=== PATIENT | female | born 1990 | race Caucasian/White ===

== ENCOUNTER 2019-09-08 13:45 | Outpatient (RCR) | payer OTHER, MEDICAID, SELFPAY ==
--- NOTE | 2019-03-17 13:13 | PT.OIE ---
Current Diagnoses Lesion of ulnar nerve, unspecified upper limb (03/17/19) Medial epicondylitis, left elbow (03/17/19) Past Surgical History History of third molar tooth extraction History of tonsillectomy Visit Care Team Role Provider Type Nancy Goldstein MD Attending Provider Non-Staff Primary Care Provider Specialty: Family Practice Address: [address] [place] [address], [phone] Fax: Email: Physical Therapy Initial Evaluation PT-OP-A Visit Information Start: 03/16/19 18:42 Freq: Status: Active Protocol: Document 03/17/19 09:46 [facility] (Rec: 03/17/19 11:16 [facility] [id number]) Out-Patient Physical Therapy Visit Information Visit Information Visit Type Initial Evaluation Visit Start Time 09:52 Visit Stop Time 10:35 Total Visit Minutes 43 Visit Number [address] SUPERVISOR Visits 0 PT-OP-B Current Condition Start: 03/16/19 18:42 Freq: Status: Active Protocol: Document 03/17/19 09:46 [facility] (Rec: 03/17/19 11:16 [facility] [id number]) Current Condition History of Current Condition Onset Date 2014 Current Complaints L post arm pain History of Current Condition Pt reports post brachium and and med forearm/post forearm & fingers, but does not rememeber which fingers but thinks 2-4. Pt reports it hadn 't made its way into her hand until 2019. Pt does not remember when the pain exactly started but it was sore every once in a while and eventually got worse. Pt neck pain does not typicaly relate to arm pain. 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 Pt has history of depression, anxiety and bipolar condition along with neck pain. Pt reports hisotry of reoccuring pain in all of her joints throguhout all of her body since 14. She has had to do PT on B knees, R shoulder coritzone shot, B hips give her trouble. Prior Treatments and Tests none Treatment Goals Patient/Caregiver Goals Dec pain, prevent progression of pain into hand, improve ability to lift PT-OP-C Subjective Start: 03/16/19 18:42 Freq: Status: Active Protocol: Document 03/17/19 09:46 [facility] (Rec: 03/17/19 11:16 [facility] [id number]) OP-PT Pain Assessment Location L arm Pain Location Details ant forearm & post med distal brachium & ant finger tips 2-4 Intensity 7 Scale Used Numeric (1 - 10) Description Throbbing Description- Other at least 4x/week Frequency Intermittent Pain Duration hours Radiating Location sometimes just elbow but often entire area Variations/Patterns numbness & tingling mostly in hand Pain Aggravating Factors ADL's,Activity,Lifting Other Pain Aggravating Factors sometimes unsure, holding phone to look @ in front ( having arm up) Pain Alleviating Factors Cold,Heat,Medication Other Pain Alleviating Factors compression sleeve PT-OP-F Manual Assessment Start: 03/16/19 18:42 Freq: Status: Active Protocol: Document 03/17/19 09:46 [facility] (Rec: 03/17/19 11:16 [facility] [id number]) Manual Assessments Soft Tissue Assessment Soft Tissue Mobility Assessment pain w/palpation of triceps, biceps and wrist fled and extensors PT-OP-J Posture/Palpation/Skin Start: 03/16/19 18:42 Freq: Status: Active Protocol: Document 03/17/19 09:46 [facility] (Rec: 03/17/19 11:16 [facility] [id number]) Posture Evaluation [facility] Postural Classification System [place] Postural Classifications Posterior/Anterior Vertebral Compression Test 0 Elbow Flexion Test 0 PT-OP-K Range of Motion Start: 03/16/19 18:42 Freq: Status: Active Protocol: Document 03/17/19 09:46 [facility] (Rec: 03/17/19 11:16 [facility] [id number]) Cervical Spine Range of Motion Cervical Spine Active Degrees Flexion 78 Extension 52 Rotation Left 30 Rotation Right 21 Lateral Flexion Left 68 Lateral Flexion Right 62 Comments neck pain w/R rot, R SB, ext Elbow/Forearm Range of Motion Elbow/Forearm Right Active Elbow Flexion (degrees) 140 Elbow Hyperextension 5 Left Active ROM Testing Position Sitting Elbow Flexion (degrees) 140 Elbow Extension (degrees) 18 Pronation (degrees) 90 Supination (degrees) 81 PT-OP-L Special Tests Start: 03/16/19 18:42 Freq: Status: Active Protocol: Document 03/17/19 09:46 [facility] (Rec: 03/17/19 11:16 [facility] [id number]) Special Tests Cervical Spine Special Tests Spurling's Test Test Results neg Neural Special Tests- Upper Body Tinel Sign Test Results L negative Radial Nerve Tension Test Results L positive Upper Limb Tension Test Test Results L 60 deg, R 110~ Median Nerve Tension Test Results neg L Ulnar Nerve Tension Test Results neg Vascular Special Tests Costoclavicular Maneuver Test Results neg for dec pulse positvie for inc pain Patricio Test Test Results neg for dec pulse positvie for inc pain PT-OP-M Strength Start: 03/16/19 18:42 Freq: Status: Active Protocol: Document 03/17/19 09:46 [facility] (Rec: 03/17/19 11:16 [facility] [id number]) Elbow/Forearm Strength Elbow and Forearm Manual Muscle Testing Right Flexion (C6) 5 Normal Extension (C7) 5 Normal Pronation 5 Normal Supination 5 Normal Left Flexion (C6) 4- Good- Extension (C7) 4- Good- Pronation 4- Good- Supination 4- Good- Reason Not Measured Pain Wrist Strength Wrist Manual Muscle Testing Right Reason Not Measured WFL Left Reason Not Measured WFL Comments 5/5 Hand Boiler Control Room Operator/Pinch Strength Hand Dominance Hand Dominance Right Hand Strength Right Comments 58lb, 45 lb, 40lbs Left Comments 40lb, 30 lb, 38 lb PT-OP-Q Treatments Start: 03/16/19 18:42 Freq: Status: Active Protocol: Document 03/17/19 09:46 [facility] (Rec: 03/17/19 11:16 [facility] [id number]) Therapeutic Exercises Sitting Exercises stretch Sitting Exercise Name elbow flex & ext stretches Side left Reps/Minutes 30 sec for elbow flexors only d/t pain with ext stretch PT-OP-T Assessment and Plan Start: 03/16/19 18:42 Freq: Status: Active Protocol: Document 03/17/19 09:46 [facility] (Rec: 03/17/19 11:16 [facility] [id number]) Physical Therapy Assessment Rehab Potential Rehabilitation Potential Good Evaluation Complexity Number of Personal Factors/Comorbidities 3 or More Number of Body Systems Impaired 4 or More Clinical Presentation at Evaluation Evolving Impairments Impairments Activity Tolerance,Functional Activities,Functional Mobility ,Pain,Posture,ROM,Soft Tissue Mobility,Strength Goals Quickdash Impairment 34.1 Residential Goal (LTG) Pt will have improvement of quickdash to less than 10 to show greater ease with daily activities. LTG Duration 05/16/19 strength Short Term Goal (STG) Pt will be indep w/HEP. STG Duration 04/17/19 Residential Goal (LTG) Pt will have 5/5 elbow strength & shoulder strength B and 4/5 EFT along with equal tacker off strength B to allow pt to do typical daily activities without pain. LTG Duration 05/16/19 lifting Short Term Goal (STG) Pt will have full AROM ext & supination of L elbow. STG Duration 04/17/19 Residential Goal (LTG) Pt will be able to lift as needed without inc pain. LTG Duration 05/16/19 Assessment Summary Assessment Pt presents with signs and symptoms of L radial nerve compression possibly at triceps. No symptoms increased with cervical ROM, but some inc with doing shoulder motions required of thoracic outlet testing. She had negative testing to ulnar nerve and negative tinnel's sign at elbow. She Physical Therapy Plan Frequency and Duration Frequency of Treatment 1-2x/week Duration of Treatment 2 MONTHES Plan of Care Start Date 03/17/19 Plan of Care End Date 05/16/19 Therapeutic Interventions Therapeutic Interventions Aquatic Therapy,Home Exercise Program,Joint Mobilizations, Manual Therapy,Neuromuscular Re-education,Patient/Caregiver Education,Self-Care/Home Management,Soft Tissue Mobilization,Taping, Therapeutic Activities, Therapeutic Exercises Modalities Cold Pack/Ice Massage,Electric Stimulation,Hot Packs, Infrared Therapy,Iontophoresis ,Traction- Mechanical, Ultrasound Next Visit Focus/Plan Next Note Type Treatment Note Next Visit Plan radial n glides, STM to triceps, flexors & extensors, tacker off strengthening exercises
--- NOTE | 2019-03-17 13:13 | PT.OPPOC ---
Physical, Occupational & Speech Therapy At [facility] Current Diagnoses Lesion of ulnar nerve, unspecified upper limb (03/17/19) Medial epicondylitis, left elbow (03/17/19) Visit Care Team Role Provider Type Nancy Goldstein MD Attending Provider Non-Staff Primary Care Provider Specialty: Family Practice Address: [address] [place] [address], [phone] Fax: Email: Plan Of Care PT-OP-T Assessment and Plan Start: 03/16/19 18:42 Freq: Status: Active Protocol: Document 03/17/19 09:46 [facility] (Rec: 03/17/19 11:16 [facility] [id number]) Physical Therapy Assessment Rehab Potential Rehabilitation Potential Good Evaluation Complexity Number of Personal Factors/Comorbidities 3 or More Number of Body Systems Impaired 4 or More Clinical Presentation at Evaluation Evolving Impairments Impairments Activity Tolerance,Functional Activities,Functional Mobility ,Pain,Posture,ROM,Soft Tissue Mobility,Strength Goals Quickdash Impairment 34.1 Butter Maker Goal (LTG) Pt will have improvement of quickdash to less than 10 to show greater ease with daily activities. LTG Duration 05/16/19 strength Short Term Goal (STG) Pt will be indep w/HEP. STG Duration 04/17/19 [facility] Goal (LTG) Pt will have 5/5 elbow strength & shoulder strength B and 4/5 EFT along with equal scrap kettle tender strength B to allow pt to do typical daily activities without pain. LTG Duration 05/16/19 lifting Short Term Goal (STG) Pt will have full AROM ext & supination of L elbow. STG Duration 04/17/19 Butter Maker Goal (LTG) Pt will be able to lift as needed without inc pain. LTG Duration 05/16/19 Assessment Summary Assessment Pt presents with signs and symptoms of L radial nerve compression possibly at triceps. No symptoms increased with cervical ROM, but some inc with doing shoulder motions required of thoracic outlet testing. She had negative testing to ulnar nerve and negative tinnel's sign at elbow. She Physical Therapy Plan Frequency and Duration Frequency of Treatment 1-2x/week Duration of Treatment 2 MONTHES Plan of Care Start Date 03/17/19 Plan of Care End Date 05/16/19 Therapeutic Interventions Therapeutic Interventions Aquatic Therapy,Home Exercise Program,Joint Mobilizations, Manual Therapy,Neuromuscular Re-education,Patient/Caregiver Education,Self-Care/Home Management,Soft Tissue Mobilization,Taping, Therapeutic Activities, Therapeutic Exercises Modalities Cold Pack/Ice Massage,Electric Stimulation,Hot Packs, Infrared Therapy,Iontophoresis ,Traction- Mechanical, Ultrasound Next Visit Focus/Plan Next Note Type Treatment Note Next Visit Plan radial n glides, STM to triceps, flexors & extensors, scrap kettle tender strengthening exercises Plan of Care Dates Plan of Care Start Date 03/17/19 Plan of Care End Date 05/16/19 Electronically Signed by: Vickie Siegel, PT 03/17/19 8020 Please Sign and Return: I have reviewed this Plan of Care and certify that the skilled therapy services above are required to meet the patient?s needs. Physician Signature Date Printed Name and Credentials Clinical Instructor Signature Printed Name and Credentials
--- NOTE | 2019-03-29 12:00 | PT.OTN ---
Current Diagnoses Lesion of ulnar nerve, unspecified upper limb (03/29/19) Medial epicondylitis, left elbow (03/29/19) Physical Therapy Treatment Note PT-OP-A Visit Information Start: 03/16/19 18:42 Freq: Status: Active Protocol: Document 03/29/19 08:13 [facility] (Rec: 03/29/19 12:00 [facility] [id number]) Out-Patient Physical Therapy Visit Information Visit Information Visit Type Treatment Note Visit Start Time 08:15 Visit Stop Time 08:55 Total Visit Minutes 40 Visit Number 2 Number of AGRICULTURAL EXTENSION EDUCATOR Visits 0 PT-OP-B Current Condition Start: 03/16/19 18:42 Freq: Status: Active Protocol: Document 03/17/19 09:46 [facility] (Rec: 03/17/19 11:16 [facility] [id number]) Current Condition History of Current Condition Onset Date 2014 Current Complaints L post arm pain History of Current Condition Pt reports post brachium and and med forearm/post forearm & fingers, but does not rememeber which fingers but thinks 2-4. Pt reports it hadn 't made its way into her hand until 2019. Pt does not remember when the pain exactly started but it was sore every once in a while and eventually got worse. Pt neck pain does not typicaly relate to arm pain. 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 Pt has history of depression, anxiety and bipolar condition along with neck pain. Pt reports hisotry of reoccuring pain in all of her joints throguhout all of her body since 14. She has had to do PT on B knees, R shoulder coritzone shot, B hips give her trouble. Prior Treatments and Tests none Treatment Goals Patient/Caregiver Goals Dec pain, prevent progression of pain into hand, improve ability to lift PT-OP-C Subjective Start: 03/16/19 18:42 Freq: Status: Active Protocol: Document 03/29/19 08:13 [facility] (Rec: 03/29/19 12:00 [facility] [id number]) OP-PT Subjective Patient Comments Patient Comments Pt reports she took advil this AM d/t it hurting pretty bad. Pt reports it has gotten better since eval. Compliance iwth stretch Patient Reported Progress Improving PT-OP-F Manual Assessment Start: 03/16/19 18:42 Freq: Status: Active Protocol: Document 03/17/19 09:46 [facility] (Rec: 03/17/19 11:16 [facility] [id number]) Manual Assessments Soft Tissue Assessment Soft Tissue Mobility Assessment pain w/palpation of triceps, biceps and wrist fled and extensors PT-OP-J Posture/Palpation/Skin Start: 03/16/19 18:42 Freq: Status: Active Protocol: Document 03/17/19 09:46 [facility] (Rec: 03/17/19 11:16 [facility] [id number]) Posture Evaluation [facility] Postural Classification System [facility] Postural Classifications Posterior/Anterior Vertebral Compression Test 0 Elbow Flexion Test 0 PT-OP-K Range of Motion Start: 03/16/19 18:42 Freq: Status: Active Protocol: Document 03/17/19 09:46 [facility] (Rec: 03/17/19 11:16 [facility] [id number]) Cervical Spine Range of Motion Cervical Spine Active Degrees Flexion 78 Extension 52 Rotation Left 30 Rotation Right 21 Lateral Flexion Left 68 Lateral Flexion Right 62 Comments neck pain w/R rot, R SB, ext Elbow/Forearm Range of Motion Elbow/Forearm Right Active Elbow Flexion (degrees) 140 Elbow Hyperextension 5 Left Active ROM Testing Position Sitting Elbow Flexion (degrees) 140 Elbow Extension (degrees) 18 Pronation (degrees) 90 Supination (degrees) 81 PT-OP-L Special Tests Start: 03/16/19 18:42 Freq: Status: Active Protocol: Document 03/17/19 09:46 [facility] (Rec: 03/17/19 11:16 [facility] [id number]) Special Tests Cervical Spine Special Tests Spurling's Test Test Results neg Neural Special Tests- Upper Body Tinel Sign Test Results L negative Radial Nerve Tension Test Results L positive Upper Limb Tension Test Test Results L 60 deg, R 110~ Median Nerve Tension Test Results neg L Ulnar Nerve Tension Test Results neg Vascular Special Tests Costoclavicular Maneuver Test Results neg for dec pulse positvie for inc pain Patricio Test Test Results neg for dec pulse positvie for inc pain PT-OP-M Strength Start: 03/16/19 18:42 Freq: Status: Active Protocol: Document 03/17/19 09:46 [facility] (Rec: 03/17/19 11:16 [facility] [id number]) Elbow/Forearm Strength Elbow and Forearm Manual Muscle Testing Right Flexion (C6) 5 Normal Extension (C7) 5 Normal Pronation 5 Normal Supination 5 Normal Left Flexion (C6) 4- Good- Extension (C7) 4- Good- Pronation 4- Good- Supination 4- Good- Reason Not Measured Pain Wrist Strength Wrist Manual Muscle Testing Right Reason Not Measured WFL Left Reason Not Measured WFL Comments 5/5 Hand Decontamination Technician/Pinch Strength Hand Dominance Hand Dominance Right Hand Strength Right Comments 58lb, 45 lb, 40lbs Left Comments 40lb, 30 lb, 38 lb PT-OP-Q Treatments Start: 03/16/19 18:42 Freq: Status: Active Protocol: Document 03/29/19 08:13 [facility] (Rec: 03/29/19 12:00 [facility] [id number]) Therapeutic Exercises Sitting Exercises putty Sitting Exercise Name grasp & pinching Side left supination Side left Equipment Used Lvl 1 tband Reps/Minutes 15 stretch Sitting Exercise Name tricep stretch, wrist flexor & ext stretch Side left Reps/Minutes 30 sec ea Standing Exercises AAROm Standing Exercise Name elbow flex/ext in pronation & supinated & neutral position Side left Equipment Used tbar Reps/Minutes 10 stretch Standing Exercise Name bicep/pec doorway stretch Side left Reps/Minutes 30 sec Manual Therapy Treatment Soft Tissue Mobilization forearm Body Location circumfrential MFR & rolling into flexors/extensors biceps Body Location L Mobilization Type Rolling,Strumming,Sustained Pressure Intensity/Depth Moderate Joint Mobilizations humeroulnar Joint L Direction distraction FM radioulnar Joint L Direction AP FM PT-OP-T Assessment and Plan Start: 03/16/19 18:42 Freq: Status: Active Protocol: Document 03/29/19 08:13 [facility] (Rec: 03/29/19 12:00 [facility] [id number]) Physical Therapy Assessment Goals Quickdash Impairment 34.1 Shirt Folding Machine Operator Goal (LTG) Pt will have improvement of quickdash to less than 10 to show greater ease with daily activities. LTG Duration 05/16/19 strength Short Term Goal (STG) Pt will be indep w/HEP. STG Duration 04/17/19 Shirt Folding Machine Operator Goal (LTG) Pt will have 5/5 elbow strength & shoulder strength B and 4/5 EFT along with equal wearing apparel folder strength B to allow pt to do typical daily activities without pain. LTG Duration 05/16/19 lifting Short Term Goal (STG) Pt will have full AROM ext & supination of L elbow. STG Duration 04/17/19 Shirt Folding Machine Operator Goal (LTG) Pt will be able to lift as needed without inc pain. LTG Duration 05/16/19 Assessment Summary Assessment Pt had improved ROM into flex & ext with dec pain after treatment. She has signficiant biceps & tricpes restrictions that likely create a lot of her restrictions of ROM. Radioulnar joint also appears to ahve significant restrction . Physical Therapy Plan Frequency and Duration Frequency of Treatment 1-2x/week Duration of Treatment 2 MONTHES Plan of Care Start Date 03/17/19 Plan of Care End Date 05/16/19 Next Visit Focus/Plan Next Note Type Treatment Note Next Visit Plan review HEP, radial n glides, STM to biceps, triceps, bracioradialis, joint mobs
--- NOTE | 2019-03-31 12:09 | PT.OTN ---
Current Diagnoses Lesion of ulnar nerve, unspecified upper limb (03/31/19) Medial epicondylitis, left elbow (03/31/19) Physical Therapy Treatment Note PT-OP-A Visit Information Start: 03/16/19 18:42 Freq: Status: Active Protocol: Document 03/31/19 11:25 [facility] (Rec: 03/31/19 12:09 [facility] [id number]) Out-Patient Physical Therapy Visit Information Visit Information Visit Type Treatment Note Visit Start Time 11:20 Visit Stop Time 12:15 Total Visit Minutes 55 Visit Number 3 Number of ENGINE ASSEMBLY SUPERVISOR Visits 0 PT-OP-B Current Condition Start: 03/16/19 18:42 Freq: Status: Active Protocol: Document 03/17/19 09:46 [facility] (Rec: 03/17/19 11:16 [facility] [id number]) Current Condition History of Current Condition Onset Date 2014 Current Complaints L post arm pain History of Current Condition Pt reports post brachium and and med forearm/post forearm & fingers, but does not rememeber which fingers but thinks 2-4. Pt reports it hadn 't made its way into her hand until 2019. Pt does not remember when the pain exactly started but it was sore every once in a while and eventually got worse. Pt neck pain does not typicaly relate to arm pain. 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 Pt has history of depression, anxiety and bipolar condition along with neck pain. Pt reports hisotry of reoccuring pain in all of her joints throguhout all of her body since 14. She has had to do PT on B knees, R shoulder coritzone shot, B hips give her trouble. Prior Treatments and Tests none Treatment Goals Patient/Caregiver Goals Dec pain, prevent progression of pain into hand, improve ability to lift PT-OP-C Subjective Start: 03/16/19 18:42 Freq: Status: Active Protocol: Document 03/31/19 11:25 [facility] (Rec: 03/31/19 12:09 [facility] [id number]) OP-PT Subjective Patient Comments Patient Comments Pt reports she was compliant with HEP. Notes she was sore for a couple hours after last session but did ok PT-OP-F Manual Assessment Start: 03/16/19 18:42 Freq: Status: Active Protocol: Document 03/17/19 09:46 [facility] (Rec: 03/17/19 11:16 [facility] [id number]) Manual Assessments Soft Tissue Assessment Soft Tissue Mobility Assessment pain w/palpation of triceps, biceps and wrist fled and extensors PT-OP-J Posture/Palpation/Skin Start: 03/16/19 18:42 Freq: Status: Active Protocol: Document 03/17/19 09:46 [facility] (Rec: 03/17/19 11:16 [facility] [id number]) Posture Evaluation [facility] Postural Classification System [facility] Postural Classifications Posterior/Anterior Vertebral Compression Test 0 Elbow Flexion Test 0 PT-OP-K Range of Motion Start: 03/16/19 18:42 Freq: Status: Active Protocol: Document 03/17/19 09:46 [facility] (Rec: 03/17/19 11:16 [facility] [id number]) Cervical Spine Range of Motion Cervical Spine Active Degrees Flexion 78 Extension 52 Rotation Left 30 Rotation Right 21 Lateral Flexion Left 68 Lateral Flexion Right 62 Comments neck pain w/R rot, R SB, ext Elbow/Forearm Range of Motion Elbow/Forearm Right Active Elbow Flexion (degrees) 140 Elbow Hyperextension 5 Left Active ROM Testing Position Sitting Elbow Flexion (degrees) 140 Elbow Extension (degrees) 18 Pronation (degrees) 90 Supination (degrees) 81 PT-OP-L Special Tests Start: 03/16/19 18:42 Freq: Status: Active Protocol: Document 03/17/19 09:46 [facility] (Rec: 03/17/19 11:16 [facility] [id number]) Special Tests Cervical Spine Special Tests Spurling's Test Test Results neg Neural Special Tests- Upper Body Tinel Sign Test Results L negative Radial Nerve Tension Test Results L positive Upper Limb Tension Test Test Results L 60 deg, R 110~ Median Nerve Tension Test Results neg L Ulnar Nerve Tension Test Results neg Vascular Special Tests Costoclavicular Maneuver Test Results neg for dec pulse positvie for inc pain Patricio Test Test Results neg for dec pulse positvie for inc pain PT-OP-M Strength Start: 03/16/19 18:42 Freq: Status: Active Protocol: Document 03/17/19 09:46 [facility] (Rec: 03/17/19 11:16 [facility] [id number]) Elbow/Forearm Strength Elbow and Forearm Manual Muscle Testing Right Flexion (C6) 5 Normal Extension (C7) 5 Normal Pronation 5 Normal Supination 5 Normal Left Flexion (C6) 4- Good- Extension (C7) 4- Good- Pronation 4- Good- Supination 4- Good- Reason Not Measured Pain Wrist Strength Wrist Manual Muscle Testing Right Reason Not Measured WFL Left Reason Not Measured WFL Comments 5/5 Hand Sourcing Engineer/Pinch Strength Hand Dominance Hand Dominance Right Hand Strength Right Comments 58lb, 45 lb, 40lbs Left Comments 40lb, 30 lb, 38 lb PT-OP-Q Treatments Start: 03/16/19 18:42 Freq: Status: Active Protocol: Document 03/31/19 11:25 [facility] (Rec: 03/31/19 12:09 [facility] [id number]) Therapeutic Exercises Sitting Exercises elbow flex Sitting Exercise Name in sup & pronated position Side left Reps/Minutes 10 ea supination Side left Equipment Used Lvl 1 tband Reps/Minutes 15 stretch Sitting Exercise Name tricep stretch, wrist flexor & ext stretch Side left Reps/Minutes 30 sec ea Standing Exercises AAROm Standing Exercise Name elbow flex/ext in pronation & supinated position Side left Equipment Used tbar Reps/Minutes 10 stretch Standing Exercise Name bicep/pec doorway stretch Side left Reps/Minutes 30 sec Manual Therapy Treatment Soft Tissue Mobilization forearm Body Location circumfrential MFR & rolling into flexors/extensors biceps Body Location L Mobilization Type Rolling,Strumming,Sustained Pressure Intensity/Depth Moderate Joint Mobilizations humeroulnar Joint L Direction distraction FM radioulnar Joint L Direction AP & distraction FM PT-OP-T Assessment and Plan Start: 03/16/19 18:42 Freq: Status: Active Protocol: Document 03/31/19 11:25 [facility] (Rec: 03/31/19 12:09 [facility] [id number]) Physical Therapy Assessment Goals Quickdash Impairment 34.1 Shelter Goal (LTG) Pt will have improvement of quickdash to less than 10 to show greater ease with daily activities. LTG Duration 05/16/19 strength Short Term Goal (STG) Pt will be indep w/HEP. STG Duration 04/17/19 Shelter Goal (LTG) Pt will have 5/5 elbow strength & shoulder strength B and 4/5 EFT along with equal midwife practitioner strength B to allow pt to do typical daily activities without pain. LTG Duration 05/16/19 lifting Short Term Goal (STG) Pt will have full AROM ext & supination of L elbow. STG Duration 04/17/19 Cardiac Cath Technologist Goal (LTG) Pt will be able to lift as needed without inc pain. LTG Duration 05/16/19 Assessment Summary Assessment Pt had improved abilityt o passively ext after treatment but still has pain at end range. Sghe is doing well with exercise performance. Physical Therapy Plan Frequency and Duration Frequency of Treatment 1-2x/week Duration of Treatment 2 MONTHES Plan of Care Start Date 03/17/19 Plan of Care End Date 05/16/19 Next Visit Focus/Plan Next Note Type Treatment Note Next Visit Plan radial n glides, STM to biceps , triceps, bracioradialis, joint mobs
--- NOTE | 2019-04-07 18:48 | PT.OTN ---
Current Diagnoses Lesion of ulnar nerve, unspecified upper limb (04/07/19) Medial epicondylitis, left elbow (04/07/19) Physical Therapy Treatment Note PT-OP-A Visit Information Start: 03/16/19 18:42 Freq: Status: Active Protocol: Document 04/07/19 18:45 [facility] (Rec: 04/07/19 18:48 [facility] [id number]) Out-Patient Physical Therapy Visit Information Visit Information Visit Type Treatment Note Visit Start Time 11:22 Visit Stop Time 12:02 Total Visit Minutes 40 Visit Number 4 Number of PHARMACY SERVICES REPRESENTATIVE Visits 0 PT-OP-B Current Condition Start: 03/16/19 18:42 Freq: Status: Active Protocol: Document 03/17/19 09:46 [facility] (Rec: 03/17/19 11:16 [facility] [id number]) Current Condition History of Current Condition Onset Date 2014 Current Complaints L post arm pain History of Current Condition Pt reports post brachium and and med forearm/post forearm & fingers, but does not rememeber which fingers but thinks 2-4. Pt reports it hadn 't made its way into her hand until 2019. Pt does not remember when the pain exactly started but it was sore every once in a while and eventually got worse. Pt neck pain does not typicaly relate to arm pain. 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 Pt has history of depression, anxiety and bipolar condition along with neck pain. Pt reports hisotry of reoccuring pain in all of her joints throguhout all of her body since 14. She has had to do PT on B knees, R shoulder coritzone shot, B hips give her trouble. Prior Treatments and Tests none Treatment Goals Patient/Caregiver Goals Dec pain, prevent progression of pain into hand, improve ability to lift PT-OP-C Subjective Start: 03/16/19 18:42 Freq: Status: Active Protocol: Document 04/07/19 18:45 [facility] (Rec: 04/07/19 18:48 [facility] [id number]) OP-PT Subjective Patient Comments Patient Comments Pt reprots she has had pain recently. Notes resisted supination exercise causes pain PT-OP-F Manual Assessment Start: 03/16/19 18:42 Freq: Status: Active Protocol: Document 03/17/19 09:46 [facility] (Rec: 03/17/19 11:16 [facility] [id number]) Manual Assessments Soft Tissue Assessment Soft Tissue Mobility Assessment pain w/palpation of triceps, biceps and wrist fled and extensors PT-OP-J Posture/Palpation/Skin Start: 03/16/19 18:42 Freq: Status: Active Protocol: Document 03/17/19 09:46 [facility] (Rec: 03/17/19 11:16 [facility] [id number]) Posture Evaluation [facility] Postural Classification System [facility] Postural Classifications Posterior/Anterior Vertebral Compression Test 0 Elbow Flexion Test 0 PT-OP-K Range of Motion Start: 03/16/19 18:42 Freq: Status: Active Protocol: Document 03/17/19 09:46 [facility] (Rec: 03/17/19 11:16 [facility] [id number]) Cervical Spine Range of Motion Cervical Spine Active Degrees Flexion 78 Extension 52 Rotation Left 30 Rotation Right 21 Lateral Flexion Left 68 Lateral Flexion Right 62 Comments neck pain w/R rot, R SB, ext Elbow/Forearm Range of Motion Elbow/Forearm Right Active Elbow Flexion (degrees) 140 Elbow Hyperextension 5 Left Active ROM Testing Position Sitting Elbow Flexion (degrees) 140 Elbow Extension (degrees) 18 Pronation (degrees) 90 Supination (degrees) 81 PT-OP-L Special Tests Start: 03/16/19 18:42 Freq: Status: Active Protocol: Document 03/17/19 09:46 [facility] (Rec: 03/17/19 11:16 [facility] [id number]) Special Tests Cervical Spine Special Tests Spurling's Test Test Results neg Neural Special Tests- Upper Body Tinel Sign Test Results L negative Radial Nerve Tension Test Results L positive Upper Limb Tension Test Test Results L 60 deg, R 110~ Median Nerve Tension Test Results neg L Ulnar Nerve Tension Test Results neg Vascular Special Tests Costoclavicular Maneuver Test Results neg for dec pulse positvie for inc pain Patricio Test Test Results neg for dec pulse positvie for inc pain PT-OP-M Strength Start: 03/16/19 18:42 Freq: Status: Active Protocol: Document 03/17/19 09:46 [facility] (Rec: 03/17/19 11:16 [facility] [id number]) Elbow/Forearm Strength Elbow and Forearm Manual Muscle Testing Right Flexion (C6) 5 Normal Extension (C7) 5 Normal Pronation 5 Normal Supination 5 Normal Left Flexion (C6) 4- Good- Extension (C7) 4- Good- Pronation 4- Good- Supination 4- Good- Reason Not Measured Pain Wrist Strength Wrist Manual Muscle Testing Right Reason Not Measured WFL Left Reason Not Measured WFL Comments 5/5 Hand Carpenter Repairer/Pinch Strength Hand Dominance Hand Dominance Right Hand Strength Right Comments 58lb, 45 lb, 40lbs Left Comments 40lb, 30 lb, 38 lb PT-OP-Q Treatments Start: 03/16/19 18:42 Freq: Status: Active Protocol: Document 04/07/19 18:45 [facility] (Rec: 04/07/19 18:48 [facility] [id number]) Manual Therapy Treatment Soft Tissue Mobilization triceps Body Location L proximal focus Mobilization Type Rolling,Strumming Intensity/Depth Moderate Body Position Supine forearm Body Location circumfrential MFR & rolling into flexors/extensors biceps Body Location L Mobilization Type Rolling,Strumming,Sustained Pressure Intensity/Depth Moderate Joint Mobilizations humeroulnar Joint L Direction distraction FM radioulnar Joint L Direction AP & distraction FM Self-Care/Home Management Treatment Education Other Education stop doing tband exercises that aggrevate PT-OP-T Assessment and Plan Start: 03/16/19 18:42 Freq: Status: Active Protocol: Document 04/07/19 18:45 [facility] (Rec: 04/07/19 18:48 [facility] [id number]) Physical Therapy Assessment Goals Quickdash Impairment 34.1 Penitentiary Goal (LTG) Pt will have improvement of quickdash to less than 10 to show greater ease with daily activities. LTG Duration 05/16/19 strength Short Term Goal (STG) Pt will be indep w/HEP. STG Duration 04/17/19 Black Leather Buffer Goal (LTG) Pt will have 5/5 elbow strength & shoulder strength B and 4/5 EFT along with equal emissions repair technician strength B to allow pt to do typical daily activities without pain. LTG Duration 05/16/19 lifting Short Term Goal (STG) Pt will have full AROM ext & supination of L elbow. STG Duration 04/17/19 Penitentiary Goal (LTG) Pt will be able to lift as needed without inc pain. LTG Duration 05/16/19 Assessment Summary Assessment Pt had improved flex and ext after treatment and reported only 1-2 point increase in pain with focus on tissues of elbow. She cont to have significant restriction of her tissues that liekly contribute to her limit to end range ext. Physical Therapy Plan Frequency and Duration Frequency of Treatment 1-2x/week Duration of Treatment 2 MONTHES Plan of Care Start Date 03/17/19 Plan of Care End Date 05/16/19 Next Visit Focus/Plan Next Note Type Treatment Note Next Visit Plan radial n glides, STM to biceps , triceps, bracioradialis, joint mobs
--- NOTE | 2019-04-12 14:49 | PT.OTN ---
Current Diagnoses Lesion of ulnar nerve, unspecified upper limb (04/12/19) Medial epicondylitis, left elbow (04/12/19) Physical Therapy Treatment Note PT-OP-A Visit Information Start: 03/16/19 18:42 Freq: Status: Active Protocol: Document 04/12/19 13:50 [facility] (Rec: 04/12/19 16:31 [facility] [id number]) Out-Patient Physical Therapy Visit Information Visit Information Visit Type Treatment Note Visit Start Time 13:50 Visit Stop Time 14:49 Total Visit Minutes 59 Visit Number 4 Number of BREAD JOCKEY Visits 1 PT-OP-B Current Condition Start: 03/16/19 18:42 Freq: Status: Active Protocol: Document 03/17/19 09:46 [facility] (Rec: 03/17/19 11:16 [facility] [id number]) Current Condition History of Current Condition Onset Date 2014 Current Complaints L post arm pain History of Current Condition Pt reports post brachium and and med forearm/post forearm & fingers, but does not rememeber which fingers but thinks 2-4. Pt reports it hadn 't made its way into her hand until 2019. Pt does not remember when the pain exactly started but it was sore every once in a while and eventually got worse. Pt neck pain does not typicaly relate to arm pain. 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 Pt has history of depression, anxiety and bipolar condition along with neck pain. Pt reports hisotry of reoccuring pain in all of her joints throguhout all of her body since 14. She has had to do PT on B knees, R shoulder coritzone shot, B hips give her trouble. Prior Treatments and Tests none Treatment Goals Patient/Caregiver Goals Dec pain, prevent progression of pain into hand, improve ability to lift PT-OP-C Subjective Start: 03/16/19 18:42 Freq: Status: Active Protocol: Document 04/12/19 13:50 [facility] (Rec: 04/12/19 16:31 [facility] [id number]) OP-PT Subjective Patient Comments Patient Comments Pt reported L lateral> medial elbow pain 6/10 pre PT. PT-OP-F Manual Assessment Start: 03/16/19 18:42 Freq: Status: Active Protocol: Document 03/17/19 09:46 [facility] (Rec: 03/17/19 11:16 [facility] [id number]) Manual Assessments Soft Tissue Assessment Soft Tissue Mobility Assessment pain w/palpation of triceps, biceps and wrist fled and extensors PT-OP-J Posture/Palpation/Skin Start: 03/16/19 18:42 Freq: Status: Active Protocol: Document 03/17/19 09:46 [facility] (Rec: 03/17/19 11:16 [facility] [id number]) Posture Evaluation [facility] Postural Classification System [facility] Postural Classifications Posterior/Anterior Vertebral Compression Test 0 Elbow Flexion Test 0 PT-OP-K Range of Motion Start: 03/16/19 18:42 Freq: Status: Active Protocol: Document 03/17/19 09:46 [facility] (Rec: 03/17/19 11:16 [facility] [id number]) Cervical Spine Range of Motion Cervical Spine Active Degrees Flexion 78 Extension 52 Rotation Left 30 Rotation Right 21 Lateral Flexion Left 68 Lateral Flexion Right 62 Comments neck pain w/R rot, R SB, ext Elbow/Forearm Range of Motion Elbow/Forearm Right Active Elbow Flexion (degrees) 140 Elbow Hyperextension 5 Left Active ROM Testing Position Sitting Elbow Flexion (degrees) 140 Elbow Extension (degrees) 18 Pronation (degrees) 90 Supination (degrees) 81 PT-OP-L Special Tests Start: 03/16/19 18:42 Freq: Status: Active Protocol: Document 03/17/19 09:46 [facility] (Rec: 03/17/19 11:16 [facility] [id number]) Special Tests Cervical Spine Special Tests Spurling's Test Test Results neg Neural Special Tests- Upper Body Tinel Sign Test Results L negative Radial Nerve Tension Test Results L positive Upper Limb Tension Test Test Results L 60 deg, R 110~ Median Nerve Tension Test Results neg L Ulnar Nerve Tension Test Results neg Vascular Special Tests Costoclavicular Maneuver Test Results neg for dec pulse positvie for inc pain Patricio Test Test Results neg for dec pulse positvie for inc pain PT-OP-M Strength Start: 03/16/19 18:42 Freq: Status: Active Protocol: Document 03/17/19 09:46 [facility] (Rec: 03/17/19 11:16 [facility] [id number]) Elbow/Forearm Strength Elbow and Forearm Manual Muscle Testing Right Flexion (C6) 5 Normal Extension (C7) 5 Normal Pronation 5 Normal Supination 5 Normal Left Flexion (C6) 4- Good- Extension (C7) 4- Good- Pronation 4- Good- Supination 4- Good- Reason Not Measured Pain Wrist Strength Wrist Manual Muscle Testing Right Reason Not Measured WFL Left Reason Not Measured WFL Comments 5/5 Hand Senior Clinical Study Manager/Pinch Strength Hand Dominance Hand Dominance Right Hand Strength Right Comments 58lb, 45 lb, 40lbs Left Comments 40lb, 30 lb, 38 lb PT-OP-Q Treatments Start: 03/16/19 18:42 Freq: Status: Active Protocol: Document 04/12/19 13:50 [facility] (Rec: 04/12/19 16:31 [facility] [id number]) Therapeutic Exercises Sitting Exercises putty Sitting Exercise Name finger/ marketing segment manager flex/ext strengthening Resistance Y putty and rubber band Reps/Minutes 5 each Comments (see hand out) good tolerance add HEP Standing Exercises radial nerve flossing Reps/Minutes x5 Comments good tolerance AAROm Standing Exercise Name free movement (distal) and contact on table (proximal) Side left Equipment Used AROM Reps/Minutes x5 each Comments distal movement more welcoming Manual Therapy Treatment Soft Tissue Mobilization triceps Body Location L proximal focus Mobilization Type Rolling,Strumming Intensity/Depth Moderate Body Position Supine forearm Body Location circumfrential MFR & rolling into flexors/extensors biceps Body Location L bicep, brachioradialis Mobilization Type Rolling,Strumming,Sustained Pressure Intensity/Depth Superficial Body Position Hooklying Joint Mobilizations humeroulnar Joint L Direction distraction FM Grade II Body Position Hooklying Comments inferior and lateral using strap, medial manual radioulnar Joint L Direction AP & distraction FM Grade II Body Position Hooklying PT-OP-R Modalities Start: 03/16/19 18:42 Freq: Status: Active Protocol: Document 04/12/19 13:50 [facility] (Rec: 04/12/19 16:31 [facility] [id number]) Hot Pack/Cold Pack Treatment MHP L elbow Location L elbow Patient Position Sitting Treatment Duration (minutes) 10 Patient Tolerance Fair Comments No change in pain 6-710 end of tx, reported little more irrat ion PT-OP-T Assessment and Plan Start: 03/16/19 18:42 Freq: Status: Active Protocol: Document 04/12/19 13:50 [facility] (Rec: 04/12/19 16:31 [facility] [id number]) Physical Therapy Assessment Goals Quickdash Impairment 34.1 Implementation Analyst Goal (LTG) Pt will have improvement of quickdash to less than 10 to show greater ease with daily activities. LTG Duration 05/16/19 strength Short Term Goal (STG) Pt will be indep w/HEP. STG Duration 04/17/19 Implementation Analyst Goal (LTG) Pt will have 5/5 elbow strength & shoulder strength B and 4/5 EFT along with equal marketing segment manager strength B to allow pt to do typical daily activities without pain. LTG Duration 05/16/19 lifting Short Term Goal (STG) Pt will have full AROM ext & supination of L elbow. STG Duration 04/17/19 Group Home Goal (LTG) Pt will be able to lift as needed without inc pain. LTG Duration 05/16/19 Assessment Summary Assessment Pt tolerated manual STMs and mobs using strap with improved flex/ext and supination. Instructed finger/marketing segment manager strengthening for ability to hold objects better, good form and understanding (see handouts in chart). Pt reported little more irritation end of tx and welcoming to MHP with minimal improvement reported. Physical Therapy Plan Frequency and Duration Frequency of Treatment 1-2x/week Duration of Treatment 2 MONTHES Plan of Care Start Date 03/17/19 Plan of Care End Date 05/16/19 Therapeutic Interventions Therapeutic Interventions Aquatic Therapy,Home Exercise Program,Joint Mobilizations, Manual Therapy,Neuromuscular Re-education,Patient/Caregiver Education,Self-Care/Home Management,Soft Tissue Mobilization,Taping, Therapeutic Activities, Therapeutic Exercises Modalities Cold Pack/Ice Massage,Electric Stimulation,Hot Packs, Infrared Therapy,Iontophoresis ,Traction- Mechanical, Ultrasound Next Visit Focus/Plan Next Note Type Treatment Note Next Visit Plan Assess tolerance to last tx added: radial n glides, STM to biceps, triceps, bracioradialis, joint mobs HU inf/lat/med, rad/uln PA/AP and added marketing segment manager putty/rubber band to HEP. Nex tx add: cued awareness of arm swing during gait. Continue per PT POC: Progress ROM, n. glides, manual, posture.
--- NOTE | 2019-04-21 11:15 | PT.OTN ---
Current Diagnoses Lesion of ulnar nerve, unspecified upper limb (04/21/19) Medial epicondylitis, left elbow (04/21/19) Physical Therapy Treatment Note PT-OP-A Visit Information Start: 03/16/19 18:42 Freq: Status: Active Protocol: Document 04/21/19 10:47 SP (Rec: 04/21/19 11:30 SP [id number]) Out-Patient Physical Therapy Visit Information Visit Information Visit Type Treatment Note Visit Note Therapist late getting patient . Visit Start Time 10:47 Visit Stop Time 11:15 Total Visit Minutes 28 Visit Number 6 Number of PLAYERS ASSISTANT Visits 2 PT-OP-B Current Condition Start: 03/16/19 18:42 Freq: Status: Active Protocol: Document 03/17/19 09:46 LR (Rec: 03/17/19 11:16 [facility] [id number]) Current Condition History of Current Condition Onset Date 2014 Current Complaints L post arm pain History of Current Condition Pt reports post brachium and and med forearm/post forearm & fingers, but does not rememeber which fingers but thinks 2-4. Pt reports it hadn 't made its way into her hand until 2019. Pt does not remember when the pain exactly started but it was sore every once in a while and eventually got worse. Pt neck pain does not typicaly relate to arm pain. 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 Pt has history of depression, anxiety and bipolar condition along with neck pain. Pt reports hisotry of reoccuring pain in all of her joints throguhout all of her body since 14. She has had to do PT on B knees, R shoulder coritzone shot, B hips give her trouble. Prior Treatments and Tests none Treatment Goals Patient/Caregiver Goals Dec pain, prevent progression of pain into hand, improve ability to lift PT-OP-C Subjective Start: 03/16/19 18:42 Freq: Status: Active Protocol: Document 04/21/19 10:47 SP (Rec: 04/21/19 11:30 SP [id number]) OP-PT Subjective Patient Comments Patient Comments Pt reported was really sore for 2 days after last tx, think maybe did to much. Was compliant with HEP instructed. PT-OP-F Manual Assessment Start: 03/16/19 18:42 Freq: Status: Active Protocol: Document 03/17/19 09:46 [facility] (Rec: 03/17/19 11:16 [facility] [id number]) Manual Assessments Soft Tissue Assessment Soft Tissue Mobility Assessment pain w/palpation of triceps, biceps and wrist fled and extensors PT-OP-J Posture/Palpation/Skin Start: 03/16/19 18:42 Freq: Status: Active Protocol: Document 03/17/19 09:46 [facility] (Rec: 03/17/19 11:16 [facility] [id number]) Posture Evaluation [facility] Postural Classification System [place] Postural Classifications Posterior/Anterior Vertebral Compression Test 0 Elbow Flexion Test 0 PT-OP-K Range of Motion Start: 03/16/19 18:42 Freq: Status: Active Protocol: Document 03/17/19 09:46 [facility] (Rec: 03/17/19 11:16 [facility] [id number]) Cervical Spine Range of Motion Cervical Spine Active Degrees Flexion 78 Extension 52 Rotation Left 30 Rotation Right 21 Lateral Flexion Left 68 Lateral Flexion Right 62 Comments neck pain w/R rot, R SB, ext Elbow/Forearm Range of Motion Elbow/Forearm Right Active Elbow Flexion (degrees) 140 Elbow Hyperextension 5 Left Active ROM Testing Position Sitting Elbow Flexion (degrees) 140 Elbow Extension (degrees) 18 Pronation (degrees) 90 Supination (degrees) 81 PT-OP-L Special Tests Start: 03/16/19 18:42 Freq: Status: Active Protocol: Document 03/17/19 09:46 [facility] (Rec: 03/17/19 11:16 [facility] [id number]) Special Tests Cervical Spine Special Tests Spurling's Test Test Results neg Neural Special Tests- Upper Body Tinel Sign Test Results L negative Radial Nerve Tension Test Results L positive Upper Limb Tension Test Test Results L 60 deg, R 110~ Median Nerve Tension Test Results neg L Ulnar Nerve Tension Test Results neg Vascular Special Tests Costoclavicular Maneuver Test Results neg for dec pulse positvie for inc pain Patricio Test Test Results neg for dec pulse positvie for inc pain PT-OP-M Strength Start: 03/16/19 18:42 Freq: Status: Active Protocol: Document 03/17/19 09:46 [facility] (Rec: 03/17/19 11:16 [facility] [id number]) Elbow/Forearm Strength Elbow and Forearm Manual Muscle Testing Right Flexion (C6) 5 Normal Extension (C7) 5 Normal Pronation 5 Normal Supination 5 Normal Left Flexion (C6) 4- Good- Extension (C7) 4- Good- Pronation 4- Good- Supination 4- Good- Reason Not Measured Pain Wrist Strength Wrist Manual Muscle Testing Right Reason Not Measured WFL Left Reason Not Measured WFL Comments 5/[address]/Pinch Strength Hand Dominance Hand Dominance Right Hand Strength Right Comments 58lb, 45 lb, 40lbs Left Comments 40lb, 30 lb, 38 lb PT-OP-Q Treatments Start: 03/16/19 18:42 Freq: Status: Active Protocol: Document 04/21/19 10:47 SP (Rec: 04/21/19 11:30 SP [id number]) Therapeutic Exercises Supine Exercises pron/sup modified elbow ext Resistance #1 Reps/Minutes 2x5 eccentric elbow flexion Resistance AROM x5, #1 wt x5 Equipment Used towel under distal humerus Reps/Minutes x5 Standing Exercises prox pron/sup Equipment Used hands on table Reps/Minutes x5 Comments cued slight elbow flex more tolerated stretch Standing Exercise Name wrist flex/ext stretch Reps/Minutes 20 x2 each Manual Therapy Treatment Soft Tissue Mobilization triceps Body Location L proximal focus Mobilization Type Rolling,Strumming Intensity/Depth Moderate Body Position Supine forearm Body Location circumfrential MFR & rolling into flexors/extensors biceps Body Location L bicep, brachioradialis Mobilization Type Rolling,Strumming,Sustained Pressure Intensity/Depth Superficial Body Position Hooklying Joint Mobilizations humeroulnar Joint L Direction distraction FM Grade II Body Position Hooklying Comments inferior and lateral using strap, medial manual Manual Traction long axis ulnar/humeral traction Body Position Supine Reps/Duration 20 sec hold x3 PT-OP-R Modalities Start: 03/16/19 18:42 Freq: Status: Active Protocol: Document 04/21/19 10:47 SP (Rec: 04/21/19 11:30 SP [id number]) Hot Pack/Cold Pack Treatment MHP L elbow Location L elbow Patient Position Sitting Treatment Duration (minutes) 10 Patient Tolerance Fair Comments No change in pain 6-7/10 end of tx, reported little more irrat ion PT-OP-T Assessment and Plan Start: 03/16/19 18:42 Freq: Status: Active Protocol: Document 04/21/19 10:47 SP (Rec: 04/21/19 11:30 SP [id number]) Physical Therapy Assessment Goals Quickdash Impairment 34.1 Longterm Goal (LTG) Pt will have improvement of quickdash to less than 10 to show greater ease with daily activities. LTG Duration 05/16/19 strength Short Term Goal (STG) Pt will be indep w/HEP. STG Duration 04/17/19 Rolling Mill Plugger Goal (LTG) Pt will have 5/5 elbow strength & shoulder strength B and 4/5 EFT along with equal claims specialist strength B to allow pt to do typical daily activities without pain. LTG Duration 05/16/19 lifting Short Term Goal (STG) Pt will have full AROM ext & supination of L elbow. STG Duration 04/17/19 Longterm Goal (LTG) Pt will be able to lift as needed without inc pain. LTG Duration 05/16/19 Assessment Summary Assessment Pt tolerated tx well, little sore post manual and ex but stated little better movement. Cued small range during manual and review HEP as tolerated and added WB prox sup/pron with cuing of slow pacing movement. No change in pain 4/10 post MHP end of tx. Educated patient awareness of arm swing during gait to decreased guarding elbow flexion with verbal confirmation. Physical Therapy Plan Frequency and Duration Frequency of Treatment 1-2x/week Duration of Treatment 2 MONTHES Plan of Care Start Date 03/17/19 Plan of Care End Date 05/16/19 Therapeutic Interventions Therapeutic Interventions Aquatic Therapy,Home Exercise Program,Joint Mobilizations, Manual Therapy,Neuromuscular Re-education,Patient/Caregiver Education,Self-Care/Home Management,Soft Tissue Mobilization,Taping, Therapeutic Activities, Therapeutic Exercises Modalities Cold Pack/Ice Massage,Electric Stimulation,Hot Packs, Infrared Therapy,Iontophoresis ,Traction- Mechanical, Ultrasound Next Visit Focus/Plan Next Note Type Treatment Note Next Visit Plan Assess tolerance to last tx manual STMs, MWM and eccentric elbow flexion #1. Continue per PT POC: Progress ROM, n. glides, manual, posture.
--- NOTE | 2019-04-28 11:51 | PT.OTN ---
Current Diagnoses Lesion of ulnar nerve, unspecified upper limb (04/28/19) Medial epicondylitis, left elbow (04/28/19) Physical Therapy Treatment Note PT-OP-A Visit Information Start: 03/16/19 18:42 Freq: Status: Active Protocol: Document 04/28/19 10:43 [facility] (Rec: 04/28/19 11:51 [facility] [id number]) Out-Patient Physical Therapy Visit Information Visit Information Visit Type Treatment Note Visit Start Time 10:39 Visit Stop Time 11:32 Total Visit Minutes 53 Visit Number 7 Number of DANCER OR CHOREOGRAPHER Visits 0 PT-OP-B Current Condition Start: 03/16/19 18:42 Freq: Status: Active Protocol: Document 03/17/19 09:46 [facility] (Rec: 03/17/19 11:16 [facility] [id number]) Current Condition History of Current Condition Onset Date 2014 Current Complaints L post arm pain History of Current Condition Pt reports post brachium and and med forearm/post forearm & fingers, but does not rememeber which fingers but thinks 2-4. Pt reports it hadn 't made its way into her hand until 2019. Pt does not remember when the pain exactly started but it was sore every once in a while and eventually got worse. Pt neck pain does not typicaly relate to arm pain. 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 Pt has history of depression, anxiety and bipolar condition along with neck pain. Pt reports hisotry of reoccuring pain in all of her joints throguhout all of her body since 14. She has had to do PT on B knees, R shoulder coritzone shot, B hips give her trouble. Prior Treatments and Tests none Treatment Goals Patient/Caregiver Goals Dec pain, prevent progression of pain into hand, improve ability to lift PT-OP-C Subjective Start: 03/16/19 18:42 Freq: Status: Active Protocol: Document 04/28/19 10:43 [facility] (Rec: 04/28/19 11:51 [facility] [id number]) OP-PT Subjective Patient Comments Patient Comments Pt reports compliance w/HEP PT-OP-F Manual Assessment Start: 03/16/19 18:42 Freq: Status: Active Protocol: Document 03/17/19 09:46 [facility] (Rec: 03/17/19 11:16 [facility] [id number]) Manual Assessments Soft Tissue Assessment Soft Tissue Mobility Assessment pain w/palpation of triceps, biceps and wrist fled and extensors PT-OP-J Posture/Palpation/Skin Start: 03/16/19 18:42 Freq: Status: Active Protocol: Document 03/17/19 09:46 [facility] (Rec: 03/17/19 11:16 [facility] [id number]) Posture Evaluation [facility] Postural Classification System [facility] Postural Classifications Posterior/Anterior Vertebral Compression Test 0 Elbow Flexion Test 0 PT-OP-K Range of Motion Start: 03/16/19 18:42 Freq: Status: Active Protocol: Document 03/17/19 09:46 [facility] (Rec: 03/17/19 11:16 [facility] [id number]) Cervical Spine Range of Motion Cervical Spine Active Degrees Flexion 78 Extension 52 Rotation Left 30 Rotation Right 21 Lateral Flexion Left 68 Lateral Flexion Right 62 Comments neck pain w/R rot, R SB, ext Elbow/Forearm Range of Motion Elbow/Forearm Right Active Elbow Flexion (degrees) 140 Elbow Hyperextension 5 Left Active ROM Testing Position Sitting Elbow Flexion (degrees) 140 Elbow Extension (degrees) 18 Pronation (degrees) 90 Supination (degrees) 81 PT-OP-L Special Tests Start: 03/16/19 18:42 Freq: Status: Active Protocol: Document 03/17/19 09:46 [facility] (Rec: 03/17/19 11:16 [facility] [id number]) Special Tests Cervical Spine Special Tests Spurling's Test Test Results neg Neural Special Tests- Upper Body Tinel Sign Test Results L negative Radial Nerve Tension Test Results L positive Upper Limb Tension Test Test Results L 60 deg, R 110~ Median Nerve Tension Test Results neg L Ulnar Nerve Tension Test Results neg Vascular Special Tests Costoclavicular Maneuver Test Results neg for dec pulse positvie for inc pain Patricio Test Test Results neg for dec pulse positvie for inc pain PT-OP-M Strength Start: 03/16/19 18:42 Freq: Status: Active Protocol: Document 03/17/19 09:46 [facility] (Rec: 03/17/19 11:16 [facility] [id number]) Elbow/Forearm Strength Elbow and Forearm Manual Muscle Testing Right Flexion (C6) 5 Normal Extension (C7) 5 Normal Pronation 5 Normal Supination 5 Normal Left Flexion (C6) 4- Good- Extension (C7) 4- Good- Pronation 4- Good- Supination 4- Good- Reason Not Measured Pain Wrist Strength Wrist Manual Muscle Testing Right Reason Not Measured WFL Left Reason Not Measured WFL Comments 5/5 Hand Router Setter/Pinch Strength Hand Dominance Hand Dominance Right Hand Strength Right Comments 58lb, 45 lb, 40lbs Left Comments 40lb, 30 lb, 38 lb PT-OP-Q Treatments Start: 03/16/19 18:42 Freq: Status: Active Protocol: Document 04/28/19 10:43 [facility] (Rec: 04/28/19 11:51 [facility] [id number]) Therapeutic Exercises Supine Exercises pron/sup modified elbow ext Resistance #1 Reps/Minutes 10 eccentric elbow flexion Supine Exercise Name in neutral, pronated & supinated Resistance 1# wt Equipment Used towel under distal humerus Reps/Minutes 10 in each Standing Exercises prox pron/sup Standing Exercise Name hadns oon table painful Equipment Used hands on wall Reps/Minutes 15 Comments cued slight elbow flex more tolerated Manual Therapy Treatment Soft Tissue Mobilization forearm Body Location circumfrential MFR biceps Body Location L bicep, brachioradialis Mobilization Type Rolling,Strumming,Sustained Pressure Intensity/Depth Superficial Body Position Hooklying Comments moderate along mm belly; superficail along distal border & circumfrential MFR on brachium PT-OP-R Modalities Start: 03/16/19 18:42 Freq: Status: Active Protocol: Document 04/28/19 10:43 [facility] (Rec: 04/28/19 11:51 [facility] [id number]) Hot Pack/Cold Pack Treatment MHP L elbow Location L elbow Patient Position Sitting Treatment Duration (minutes) 15 PT-OP-T Assessment and Plan Start: 03/16/19 18:42 Freq: Status: Active Protocol: Document 04/28/19 10:43 [facility] (Rec: 04/28/19 11:51 [facility] [id number]) Physical Therapy Assessment Goals Quickdash Impairment 34.1 Penitentiary Goal (LTG) Pt will have improvement of quickdash to less than 10 to show greater ease with daily activities. LTG Duration 05/16/19 strength Short Term Goal (STG) Pt will be indep w/HEP. STG Duration 04/17/19 X Ray Equipment Mechanic Goal (LTG) Pt will have 5/5 elbow strength & shoulder strength B and 4/5 EFT along with equal licensed practical nurse clinic nurse strength B to allow pt to do typical daily activities without pain. LTG Duration 05/16/19 lifting Short Term Goal (STG) Pt will have full AROM ext & supination of L elbow. STG Duration 04/17/19 X Ray Equipment Mechanic Goal (LTG) Pt will be able to lift as needed without inc pain. LTG Duration 05/16/19 Assessment Summary Assessment Pt able to tolearate exercsies well today with 1# wt once in pronated and netral postion duirng eccentric exercises but in supinated position was still painful. Signficiant improvement in abilityt o extend after treatment. Physical Therapy Plan Frequency and Duration Frequency of Treatment 1-2x/week Duration of Treatment 2 MONTHES Plan of Care Start Date 03/17/19 Plan of Care End Date 05/16/19 Next Visit Focus/Plan Next Note Type Treatment Note Next Visit Plan Cont to progress strengthening as pt tolerates
--- NOTE | 2019-05-05 12:09 | PT.OTN ---
Current Diagnoses Lesion of ulnar nerve, unspecified upper limb (05/05/19) Medial epicondylitis, left elbow (05/05/19) Physical Therapy Treatment Note PT-OP-A Visit Information Start: 03/16/19 18:42 Freq: Status: Active Protocol: Document 05/05/19 10:25 [facility] (Rec: 05/05/19 12:09 [facility] [id number]) Out-Patient Physical Therapy Visit Information Visit Information Visit Type Treatment Note Visit Start Time 10:34 Visit Stop Time 11:15 Total Visit Minutes 41 Visit Number 8 Number of POLE SHAVER Visits 0 PT-OP-B Current Condition Start: 03/16/19 18:42 Freq: Status: Active Protocol: Document 03/17/19 09:46 [facility] (Rec: 03/17/19 11:16 [facility] [id number]) Current Condition History of Current Condition Onset Date 2014 Current Complaints L post arm pain History of Current Condition Pt reports post brachium and and med forearm/post forearm & fingers, but does not rememeber which fingers but thinks 2-4. Pt reports it hadn 't made its way into her hand until 2019. Pt does not remember when the pain exactly started but it was sore every once in a while and eventually got worse. Pt neck pain does not typicaly relate to arm pain. 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 Pt has history of depression, anxiety and bipolar condition along with neck pain. Pt reports hisotry of reoccuring pain in all of her joints throguhout all of her body since 14. She has had to do PT on B knees, R shoulder coritzone shot, B hips give her trouble. Prior Treatments and Tests none Treatment Goals Patient/Caregiver Goals Dec pain, prevent progression of pain into hand, improve ability to lift PT-OP-C Subjective Start: 03/16/19 18:42 Freq: Status: Active Protocol: Document 05/05/19 10:25 [facility] (Rec: 05/05/19 12:09 [facility] [id number]) OP-PT Subjective Patient Comments Patient Comments Pt reports being sore for 2 days after last session but feels like pain has been not excrutiating PT-OP-F Manual Assessment Start: 03/16/19 18:42 Freq: Status: Active Protocol: Document 03/17/19 09:46 [facility] (Rec: 03/17/19 11:16 [facility] [id number]) Manual Assessments Soft Tissue Assessment Soft Tissue Mobility Assessment pain w/palpation of triceps, biceps and wrist fled and extensors PT-OP-J Posture/Palpation/Skin Start: 03/16/19 18:42 Freq: Status: Active Protocol: Document 03/17/19 09:46 [facility] (Rec: 03/17/19 11:16 [facility] [id number]) Posture Evaluation [facility] Postural Classification System [facility] Postural Classifications Posterior/Anterior Vertebral Compression Test 0 Elbow Flexion Test 0 PT-OP-K Range of Motion Start: 03/16/19 18:42 Freq: Status: Active Protocol: Document 03/17/19 09:46 [facility] (Rec: 03/17/19 11:16 [facility] [id number]) Cervical Spine Range of Motion Cervical Spine Active Degrees Flexion 78 Extension 52 Rotation Left 30 Rotation Right 21 Lateral Flexion Left 68 Lateral Flexion Right 62 Comments neck pain w/R rot, R SB, ext Elbow/Forearm Range of Motion Elbow/Forearm Right Active Elbow Flexion (degrees) 140 Elbow Hyperextension 5 Left Active ROM Testing Position Sitting Elbow Flexion (degrees) 140 Elbow Extension (degrees) 18 Pronation (degrees) 90 Supination (degrees) 81 PT-OP-L Special Tests Start: 03/16/19 18:42 Freq: Status: Active Protocol: Document 03/17/19 09:46 [facility] (Rec: 03/17/19 11:16 [facility] [id number]) Special Tests Cervical Spine Special Tests Spurling's Test Test Results neg Neural Special Tests- Upper Body Tinel Sign Test Results L negative Radial Nerve Tension Test Results L positive Upper Limb Tension Test Test Results L 60 deg, R 110~ Median Nerve Tension Test Results neg L Ulnar Nerve Tension Test Results neg Vascular Special Tests Costoclavicular Maneuver Test Results neg for dec pulse positvie for inc pain Patricio Test Test Results neg for dec pulse positvie for inc pain PT-OP-M Strength Start: 03/16/19 18:42 Freq: Status: Active Protocol: Document 03/17/19 09:46 [facility] (Rec: 03/17/19 11:16 [facility] [id number]) Elbow/Forearm Strength Elbow and Forearm Manual Muscle Testing Right Flexion (C6) 5 Normal Extension (C7) 5 Normal Pronation 5 Normal Supination 5 Normal Left Flexion (C6) 4- Good- Extension (C7) 4- Good- Pronation 4- Good- Supination 4- Good- Reason Not Measured Pain Wrist Strength Wrist Manual Muscle Testing Right Reason Not Measured WFL Left Reason Not Measured WFL Comments 5/5 Hand Cut Plug Packer/Pinch Strength Hand Dominance Hand Dominance Right Hand Strength Right Comments 58lb, 45 lb, 40lbs Left Comments 40lb, 30 lb, 38 lb PT-OP-Q Treatments Start: 03/16/19 18:42 Freq: Status: Active Protocol: Document 05/05/19 10:25 [facility] (Rec: 05/05/19 12:09 [facility] [id number]) Cardio Equipment Upper Body Ergometer (UBE) Duration (Minutes) 5 Seat Position 12 Height 4 Other fwd/[id number] Therapeutic Exercises Supine Exercises pron/sup modified elbow ext Resistance #2 Reps/Minutes 20 eccentric elbow flexion Supine Exercise Name in neutral, pronated Resistance 2# wt neutral & pronated & supinated 1# Equipment Used towel under distal humerus Reps/Minutes 15 in each Comments eccentric and concentric Standing Exercises wall posture Standing Exercise Name w/90/90 HAbd Side bilateral Reps/Minutes 10 Manual Therapy Treatment Soft Tissue Mobilization pec Body Location pec L and ant shoulder Mobilization Type Myofascial Release,Rolling Comments in post glide position Joint Mobilizations GH Joint L Direction distraction, post glide & translation, inf glide FM Comments w/manual faciliation for proper GH motion after ea PT-OP-R Modalities Start: 03/16/19 18:42 Freq: Status: Active Protocol: Document 04/28/19 10:43 [facility] (Rec: 04/28/19 11:51 [facility] [id number]) Hot Pack/Cold Pack Treatment MHP L elbow Location L elbow Patient Position Sitting Treatment Duration (minutes) 15 PT-OP-T Assessment and Plan Start: 03/16/19 18:42 Freq: Status: Active Protocol: Document 05/05/19 10:25 [facility] (Rec: 05/05/19 12:09 [facility] [id number]) Physical Therapy Assessment Goals Quickdash Impairment 34.1 Mcc Goal (LTG) Pt will have improvement of quickdash to less than 10 to show greater ease with daily activities. LTG Duration 05/16/19 strength Short Term Goal (STG) Pt will be indep w/HEP. STG Duration 04/17/19 Mcc Goal (LTG) Pt will have 5/5 elbow strength & shoulder strength B and 4/5 EFT along with equal pv design engineer strength B to allow pt to do typical daily activities without pain. LTG Duration 05/16/19 lifting Short Term Goal (STG) Pt will have full AROM ext & supination of L elbow. STG Duration 04/17/19 Telecom Field Technician Goal (LTG) Pt will be able to lift as needed without inc pain. LTG Duration 05/16/19 Assessment Summary Assessment Pt had improved elbow ext with less pain and IR behind back with less pain after manual treatment. She did well with addition of more weight with exercises. Physical Therapy Plan Frequency and Duration Frequency of Treatment 1-2x/week Duration of Treatment 2 MONTHES Plan of Care Start Date 03/17/19 Plan of Care End Date 05/16/19 Next Visit Focus/Plan Next Note Type Treatment Note Next Visit Plan Cont to progress strengthening as pt tolerates
--- NOTE | 2019-05-10 09:05 | PT.OTN ---
Current Diagnoses Lesion of ulnar nerve, unspecified upper limb (05/10/19) Medial epicondylitis, left elbow (05/10/19) Physical Therapy Treatment Note PT-OP-A Visit Information Start: 03/16/19 18:42 Freq: Status: Active Protocol: Document 05/10/19 08:22 SP (Rec: 05/10/19 09:15 SP [id number]) Out-Patient Physical Therapy Visit Information Visit Information Visit Type Treatment Note Visit Note Pt was 12 min late for appt today. Visit Start Time 08:22 Visit Stop Time 09:05 Total Visit Minutes 43 PT-OP-B Current Condition Start: 03/16/19 18:42 Freq: Status: Active Protocol: Document 03/17/19 09:46 [facility] (Rec: 03/17/19 11:16 [facility] [id number]) Current Condition History of Current Condition Onset Date 2014 Current Complaints L post arm pain History of Current Condition Pt reports post brachium and and med forearm/post forearm & fingers, but does not rememeber which fingers but thinks 2-4. Pt reports it hadn 't made its way into her hand until 2019. Pt does not remember when the pain exactly started but it was sore every once in a while and eventually got worse. Pt neck pain does not typicaly relate to arm pain. 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 Pt has history of depression, anxiety and bipolar condition along with neck pain. Pt reports hisotry of reoccuring pain in all of her joints throguhout all of her body since 14. She has had to do PT on B knees, R shoulder coritzone shot, B hips give her trouble. Prior Treatments and Tests none Treatment Goals Patient/Caregiver Goals Dec pain, prevent progression of pain into hand, improve ability to lift PT-OP-C Subjective Start: 03/16/19 18:42 Freq: Status: Active Protocol: Document 05/10/19 08:22 SP (Rec: 05/10/19 09:15 SP [id number]) OP-PT Subjective Patient Comments Patient Comments Pt reports stiffness in L shld and elbow but not pain, compliant with HEP at home. No new concerns or changes to report. PT-OP-F Manual Assessment Start: 03/16/19 18:42 Freq: Status: Active Protocol: Document 03/17/19 09:46 [facility] (Rec: 03/17/19 11:16 [facility] [id number]) Manual Assessments Soft Tissue Assessment Soft Tissue Mobility Assessment pain w/palpation of triceps, biceps and wrist fled and extensors PT-OP-J Posture/Palpation/Skin Start: 03/16/19 18:42 Freq: Status: Active Protocol: Document 03/17/19 09:46 [facility] (Rec: 03/17/19 11:16 [facility] [id number]) Posture Evaluation [facility] Postural Classification System Jose Francisco Postural Classifications Posterior/Anterior Vertebral Compression Test 0 Elbow Flexion Test 0 PT-OP-K Range of Motion Start: 03/16/19 18:42 Freq: Status: Active Protocol: Document 03/17/19 09:46 [facility] (Rec: 03/17/19 11:16 [facility] [id number]) Cervical Spine Range of Motion Cervical Spine Active Degrees Flexion 78 Extension 52 Rotation Left 30 Rotation Right 21 Lateral Flexion Left 68 Lateral Flexion Right 62 Comments neck pain w/R rot, R SB, ext Elbow/Forearm Range of Motion Elbow/Forearm Right Active Elbow Flexion (degrees) 140 Elbow Hyperextension 5 Left Active ROM Testing Position Sitting Elbow Flexion (degrees) 140 Elbow Extension (degrees) 18 Pronation (degrees) 90 Supination (degrees) 81 PT-OP-L Special Tests Start: 03/16/19 18:42 Freq: Status: Active Protocol: Document 03/17/19 09:46 [facility] (Rec: 03/17/19 11:16 [facility] [id number]) Special Tests Cervical Spine Special Tests Spurling's Test Test Results neg Neural Special Tests- Upper Body Tinel Sign Test Results L negative Radial Nerve Tension Test Results L positive Upper Limb Tension Test Test Results L 60 deg, R 110~ Median Nerve Tension Test Results neg L Ulnar Nerve Tension Test Results neg Vascular Special Tests Costoclavicular Maneuver Test Results neg for dec pulse positvie for inc pain Patricio Test Test Results neg for dec pulse positvie for inc pain PT-OP-M Strength Start: 03/16/19 18:42 Freq: Status: Active Protocol: Document 03/17/19 09:46 [facility] (Rec: 03/17/19 11:16 [facility] [id number]) Elbow/Forearm Strength Elbow and Forearm Manual Muscle Testing Right Flexion (C6) 5 Normal Extension (C7) 5 Normal Pronation 5 Normal Supination 5 Normal Left Flexion (C6) 4- Good- Extension (C7) 4- Good- Pronation 4- Good- Supination 4- Good- Reason Not Measured Pain Wrist Strength Wrist Manual Muscle Testing Right Reason Not Measured WFL Left Reason Not Measured WFL Comments 5/5 Hand Quantometer Operator/Pinch Strength Hand Dominance Hand Dominance Right Hand Strength Right Comments 58lb, 45 lb, 40lbs Left Comments 40lb, 30 lb, 38 lb PT-OP-Q Treatments Start: 03/16/19 18:42 Freq: Status: Active Protocol: Document 05/10/19 08:22 SP (Rec: 05/10/19 09:15 SP [id number]) Cardio Equipment Upper Body Ergometer (UBE) Duration (Minutes) 6 Seat Position 7 Height 2.5 Other 3 min fwd/back Therapeutic Exercises Supine Exercises shoulder flex Side left Equipment Used DB #2 Reps/Minutes 2x10 Comments cued elbow ext, to FROM as tolerated pron/sup modified elbow ext Side left Resistance #2 Reps/Minutes 20 Comments cued scap stabilization eccentric elbow flexion Supine Exercise Name in neutral, pronated Side left Resistance 2# wt neutral & pronated & supinated 1# Equipment Used towel under distal humerus Reps/Minutes 15 in each Comments eccentric and concentric cued scap stab to decrease humerus anter glide Standing Exercises elbow extention Side bilateral Equipment Used TB #1, mirror self GH feedback Reps/Minutes 5 x 2 Comments used mirror for cue of scapular retraction wall posture Standing Exercise Name w/90/90 HAbd Side bilateral Reps/Minutes 10 Manual Therapy Treatment Soft Tissue Mobilization pec Body Location pec L and ant shoulder Mobilization Type Myofascial Release,Rolling Comments in post glide position biceps Body Location L bicep, brachioradialis Mobilization Type Cross-Friction,Myofascial Release,Rolling Intensity/Depth Superficial Body Position Hooklying Comments moderate along mm belly; superficail along distal border & circumfrential MFR on brachium, MWM elbow flex/ext and forearm pron/sup Joint Mobilizations GH Joint L Direction distraction, post glide & translation, inf glide FM Comments w/manual faciliation for proper GH motion after ea PT-OP-R Modalities Start: 03/16/19 18:42 Freq: Status: Active Protocol: Document 04/28/19 10:43 LR (Rec: 04/28/19 11:51 [facility] [id number]) Hot Pack/Cold Pack Treatment MHP L elbow Location L elbow Patient Position Sitting Treatment Duration (minutes) 15 PT-OP-T Assessment and Plan Start: 03/16/19 18:42 Freq: Status: Active Protocol: Document 05/10/19 08:22 SP (Rec: 05/10/19 09:15 SP [id number]) Physical Therapy Assessment Goals Quickdash Impairment 34.1 Group Home Goal (LTG) Pt will have improvement of quickdash to less than 10 to show greater ease with daily activities. LTG Duration 05/16/19 strength Short Term Goal (STG) Pt will be indep w/HEP. STG Duration 04/17/19 Group Home Goal (LTG) Pt will have 5/5 elbow strength & shoulder strength B and 4/5 EFT along with equal signal inspector strength B to allow pt to do typical daily activities without pain. LTG Duration 05/16/19 lifting Short Term Goal (STG) Pt will have full AROM ext & supination of L elbow. STG Duration 04/17/19 Group Home Goal (LTG) Pt will be able to lift as needed without inc pain. LTG Duration 05/16/19 Assessment Summary Assessment Pt improved in ext post manual and not as tender to palpation and response feedback today. Pt tolerated ther ex, required cuing for scap stabilization (retraction /depression) duirng eccentric elbow ext supine and standing to decrease L anteroprotraction recruitment. Added FF DB, tricep ext TB and scap retraction to HEP today with no adverse response . Pt stated tired post ther ex. Physical Therapy Plan Frequency and Duration Frequency of Treatment 1-2x/week Duration of Treatment 2 MONTHES Plan of Care Start Date 03/17/19 Plan of Care End Date 05/16/19 Therapeutic Interventions Therapeutic Interventions Aquatic Therapy,Home Exercise Program,Joint Mobilizations, Manual Therapy,Neuromuscular Re-education,Patient/Caregiver Education,Self-Care/Home Management,Soft Tissue Mobilization,Taping, Therapeutic Activities, Therapeutic Exercises Modalities Cold Pack/Ice Massage,Electric Stimulation,Hot Packs, Infrared Therapy,Iontophoresis ,Traction- Mechanical, Ultrasound Next Visit Focus/Plan Next Note Type Treatment Note Next Visit Plan Assess response to manual, tricep ext Tb, FF OH added last tx. Next tx consider K tape scap stab? Cont to progress per PT POC: strengthening as pt tolerates
--- NOTE | 2019-05-17 16:00 | PT.OPPOC ---
Physical, Occupational & Speech Therapy At [facility] Current Diagnoses Lesion of ulnar nerve, unspecified upper limb (05/17/19) Medial epicondylitis, left elbow (05/17/19) Visit Care Team Role Provider Type Nancy Goldstein MD Attending Provider Non-Staff Primary Care Provider Specialty: Family Practice Address: [address] [place] [address], [phone] Fax: Email: Plan Of Care PT-OP-T Assessment and Plan Start: 03/16/19 18:42 Freq: Status: Active Protocol: Document 05/17/19 13:45 EG (Rec: 05/17/19 17:03 EG [id number]) Physical Therapy Assessment Goals Quickdash Impairment 34.1 [facility] Goal (LTG) Pt will have improvement of quickdash to less than 10 to show greater ease with daily activities. 05/17/2019: patient scored 31.8 after filling out today. Slight improvement but would still like to acheive a score of 10. LTG Duration 06/14/2019 strength Short Term Goal (STG) Pt will be indep w/HEP. 05/17/2019: Met STG Duration 04/17/19 [facility] Goal (LTG) Pt will have 5/5 elbow strength & shoulder strength B and 4/5 EFT along with equal gift consultant strength B to allow pt to do typical daily activities without pain. 05/17/2019: Continue progressing strength. gift consultant strength has improved LTG Duration 06/14/2019 lifting Short Term Goal (STG) Pt will have full AROM ext & supination of L elbow. 05/17/2019: Patient has full supination but still lacks 5 degrees of full extension of L elbow. STG Duration 04/17/19 Mash Tub Cooker Goal (LTG) Pt will be able to lift as needed without inc pain. 05/17/2019: Patient still reports some pain with day to day activities. Continue progressing towards goal LTG Duration 06/14/2019 Progress Towards Goals Progress Towards Goals Progressing Toward Goals Progress Comments See notes in goals section Assessment Summary Assessment Patient tolerated treatment well today. She had decreased pain with movements and demonstrated increased gift consultant strength as well as less pain with cervical ROM.Shoulder ROM was within functional limits and did not seem to influence pain moveing in to elbow. She should continue with elbow strength training, elbow mobilization to increase ROM, as well as functional training to improve ability to perform daily activities with decreased pain. Physical Therapy Plan Frequency and Duration Frequency of Treatment 1x/Week Duration of Treatment 4 weeks Plan of Care Start Date 05/17/19 Plan of Care End Date 06/14/19 Therapeutic Interventions Therapeutic Interventions Aquatic Therapy,Home Exercise Program,Joint Mobilizations, Manual Therapy,Neuromuscular Re-education,Patient/Caregiver Education,Self-Care/Home Management,Soft Tissue Mobilization,Taping, Therapeutic Activities, Therapeutic Exercises Modalities Cold Pack/Ice Massage,Electric Stimulation,Hot Packs, Infrared Therapy,Iontophoresis ,Traction- Mechanical, Ultrasound Next Visit Focus/Plan Next Note Type Treatment Note Next Visit Plan Next tx consider K tape scap stab? Cont to progress per PT POC: strengthening as pt tolerates Plan of Care Dates Plan of Care Start Date 05/17/19 Plan of Care End Date 06/14/19 I, VICKI GutierrezT, supervised all treatment performed by, and agreed with the plan of care, as performed by Erin Cramer, RAINA. Electronically Signed by: Maggie Campbell PT 05/18/19 [id number] Please Sign and Return: I have reviewed this Plan of Care and certify that the skilled therapy services above are required to meet the patient?s needs. Physician Signature Date Printed Name and Credentials Clinical Instructor Signature Printed Name and Credentials
--- NOTE | 2019-05-17 16:00 | PT.OTN ---
Current Diagnoses Lesion of ulnar nerve, unspecified upper limb (05/17/19) Medial epicondylitis, left elbow (05/17/19) Physical Therapy Treatment Note PT-OP-A Visit Information Start: 03/16/19 18:42 Freq: Status: Active Protocol: Document 05/17/19 13:45 EG (Rec: 05/17/19 17:03 EG [id number]) Out-Patient Physical Therapy Visit Information Visit Information Visit Type Progress Note Visit Start Time 13:45 Visit Stop Time 14:40 Total Visit Minutes 55 Visit Number 10 Number of WOOL HAT FINISHER Visits 0 PT-OP-B Current Condition Start: 03/16/19 18:42 Freq: Status: Active Protocol: Document 03/17/19 09:46 [facility] (Rec: 03/17/19 11:16 [facility] [id number]) Current Condition History of Current Condition Onset Date 2014 Current Complaints L post arm pain History of Current Condition Pt reports post brachium and and med forearm/post forearm & fingers, but does not rememeber which fingers but thinks 2-4. Pt reports it hadn 't made its way into her hand until 2019. Pt does not remember when the pain exactly started but it was sore every once in a while and eventually got worse. Pt neck pain does not typicaly relate to arm pain. 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 Pt has history of depression, anxiety and bipolar condition along with neck pain. Pt reports hisotry of reoccuring pain in all of her joints throguhout all of her body since 14. She has had to do PT on B knees, R shoulder coritzone shot, B hips give her trouble. Prior Treatments and Tests none Treatment Goals Patient/Caregiver Goals Dec pain, prevent progression of pain into hand, improve ability to lift PT-OP-C Subjective Start: 03/16/19 18:42 Freq: Status: Active Protocol: Document 05/17/19 13:45 EG (Rec: 05/17/19 17:03 EG [id number]) OP-PT Subjective Patient Comments Patient Comments Patient reported that today was a good day. She was not feeling as much pain in the elbow today and has felt some improvement in the elbow. She feels as if she always feels better 2 days after therapy and then it goes back to where it was. Patient Questionnaires Quick Dash- Upper Extremity Quick Dash UE Score 31.8 Quick Dash UE Impairment 20 to 39% Impaired (Score 20- 39) PT-OP-F Manual Assessment Start: 03/16/19 18:42 Freq: Status: Active Protocol: Document 03/17/19 09:46 LR (Rec: 03/17/19 11:16 LR [id number]) Manual Assessments Soft Tissue Assessment Soft Tissue Mobility Assessment pain w/palpation of triceps, biceps and wrist fled and extensors PT-OP-J Posture/Palpation/Skin Start: 03/16/19 18:42 Freq: Status: Active Protocol: Document 03/17/19 09:46 LR (Rec: 03/17/19 11:16 [facility] [id number]) Posture Evaluation Jose Francisco Postural Classification System Jose Francisco Postural Classifications Posterior/Anterior Vertebral Compression Test 0 Elbow Flexion Test 0 PT-OP-K Range of Motion Start: 03/16/19 18:42 Freq: Status: Active Protocol: Document 05/17/19 13:45 EG (Rec: 05/17/19 17:03 EG [email or web address]) Cervical Spine Range of Motion Cervical Spine Active Degrees Testing Position Sitting Flexion 55 Extension 50 Rotation Left 40 Rotation Right 50 Lateral Flexion Left 40 Lateral Flexion Right 40 Comments no neck pain reported Shoulder Goniometric Range of Motion Shoulder ROM Limitations Comments Shoulder ROM was WNL but patient did have increased tension in L shoulder with abduction Elbow/Forearm Range of Motion Elbow/Forearm Right Active Elbow Flexion (degrees) 140 Elbow Extension (degrees) 5 Left Active Elbow Flexion (degrees) 140 Elbow Extension (degrees) 5 PT-OP-L Special Tests Start: 03/16/19 18:42 Freq: Status: Active Protocol: Document 05/17/19 13:45 EG (Rec: 05/17/19 17:05 EG [email or web address]) Special Tests Neural Special Tests- Upper Body Radial Nerve Tension Test Results - Comments Did feel increased tension but did not change with head turn PT-OP-M Strength Start: 03/16/19 18:42 Freq: Status: Active Protocol: Document 05/17/19 13:45 EG (Rec: 05/17/19 17:05 EG [id number]) Hand Accelerator Systems Director/Pinch Strength Hand Strength Right Comments 55lbs, 55lbs, 56lbs Left Comments 45lbs, 45lbs, 45lbs PT-OP-Q Treatments Start: 03/16/19 18:42 Freq: Status: Active Protocol: Document 05/17/19 13:45 EG (Rec: 05/17/19 17:03 EG [id number]) Therapeutic Exercises Supine Exercises Chest cranberry grower on foam roller Supine Exercise Name Foam Roll Chest cranberry grower with reciprical shoulder flexion Reps/Minutes 1 min, 10x each way Comments emphasize elbow extension pron/sup modified elbow ext Side left Resistance #2 Reps/Minutes 20 Comments cued scap stabilization eccentric elbow flexion Supine Exercise Name flexion/extension done in supination Resistance manual resistance Manual Therapy Treatment Soft Tissue Mobilization pec Body Location pec L and ant shoulder Mobilization Type Myofascial Release,Rolling biceps Body Location L bicep, brachioradialis Mobilization Type Cross-Friction,Myofascial Release,Rolling Intensity/Depth Superficial Body Position Hooklying Comments moderate along mm belly; superficail along distal border & circumfrential MFR on brachium, MWM elbow flex/ext and forearm pron/sup PT-OP-R Modalities Start: 03/16/19 18:42 Freq: Status: Active Protocol: Document 05/17/19 13:45 EG (Rec: 05/17/19 17:03 EG [email or web address]) Hot Pack/Cold Pack Treatment MHP L elbow Location L elbow Patient Position Sitting Treatment Duration (minutes) 15 Patient Tolerance Good PT-OP-T Assessment and Plan Start: 03/16/19 18:42 Freq: Status: Active Protocol: Document 05/17/19 13:45 EG (Rec: 05/17/19 17:03 EG [email or web address]) Physical Therapy Assessment Goals Quickdash Impairment 34.1 Assisted Goal (LTG) Pt will have improvement of quickdash to less than 10 to show greater ease with daily activities. 05/17/2019: patient scored 31.8 after filling out today. Slight improvement but would still like to acheive a score of 10. LTG Duration 06/14/2019 strength Short Term Goal (STG) Pt will be indep w/HEP. 05/17/2019: Met STG Duration 04/17/19 Corporate Sales Representative Goal (LTG) Pt will have 5/5 elbow strength & shoulder strength B and 4/5 EFT along with equal pole lift operator strength B to allow pt to do typical daily activities without pain. 05/17/2019: Continue progressing strength. pole lift operator strength has improved LTG Duration 06/14/2019 lifting Short Term Goal (STG) Pt will have full AROM ext & supination of L elbow. 05/17/2019: Patient has full supination but still lacks 5 degrees of full extension of L elbow. STG Duration 04/17/19 Corporate Sales Representative Goal (LTG) Pt will be able to lift as needed without inc pain. 05/17/2019: Patient still reports some pain with day to day activities. Continue progressing towards goal LTG Duration 06/14/2019 Progress Towards Goals Progress Towards Goals Progressing Toward Goals Progress Comments See notes in goals section Assessment Summary Assessment Patient tolerated treatment well today. She had decreased pain with movements and demonstrated increased pole lift operator strength as well as less pain with cervical ROM.Shoulder ROM was within functional limits and did not seem to influence pain moveing in to elbow. She should continue with elbow strength training, elbow mobilization to increase ROM, as well as functional training to improve ability to perform daily activities with decreased pain. Physical Therapy Plan Frequency and Duration Frequency of Treatment 1x/Week Duration of Treatment 4 weeks Plan of Care Start Date 05/17/19 Plan of Care End Date 06/14/19 Therapeutic Interventions Therapeutic Interventions Aquatic Therapy,Home Exercise Program,Joint Mobilizations, Manual Therapy,Neuromuscular Re-education,Patient/Caregiver Education,Self-Care/Home Management,Soft Tissue Mobilization,Taping, Therapeutic Activities, Therapeutic Exercises Modalities Cold Pack/Ice Massage,Electric Stimulation,Hot Packs, Infrared Therapy,Iontophoresis ,Traction- Mechanical, Ultrasound Next Visit Focus/Plan Next Note Type Treatment Note Next Visit Plan Next tx consider K tape scap stab? Cont to progress per PT POC: strengthening as pt tolerates I, Maggie Campbell DPT, supervised all treatment performed by, and agreed with the plan of care, as performed by Erin Cramer, SPT.
--- NOTE | 2019-05-18 11:21 | PT.OTN ---
Current Diagnoses Lesion of ulnar nerve, unspecified upper limb (05/17/19) Medial epicondylitis, left elbow (05/17/19) Physical Therapy Treatment Note PT-OP-A Visit Information Start: 03/16/19 18:42 Freq: Status: Active Protocol: Document 05/17/19 13:45 EG (Rec: 05/17/19 17:03 EG [email or web address]) Out-Patient Physical Therapy Visit Information Visit Information Visit Type Progress Note Visit Start Time 13:45 Visit Stop Time 14:40 Total Visit Minutes 55 Visit Number 10 Number of EYEGLASS FRAMES INSPECTOR Visits 0 PT-OP-B Current Condition Start: 03/16/19 18:42 Freq: Status: Active Protocol: Document 03/17/19 09:46 [facility] (Rec: 03/17/19 11:16 [facility] [id number]) Current Condition History of Current Condition Onset Date 2014 Current Complaints L post arm pain History of Current Condition Pt reports post brachium and and med forearm/post forearm & fingers, but does not rememeber which fingers but thinks 2-4. Pt reports it hadn 't made its way into her hand until 2019. Pt does not remember when the pain exactly started but it was sore every once in a while and eventually got worse. Pt neck pain does not typicaly relate to arm pain. 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 Pt has history of depression, anxiety and bipolar condition along with neck pain. Pt reports hisotry of reoccuring pain in all of her joints throguhout all of her body since 14. She has had to do PT on B knees, R shoulder coritzone shot, B hips give her trouble. Prior Treatments and Tests none Treatment Goals Patient/Caregiver Goals Dec pain, prevent progression of pain into hand, improve ability to lift PT-OP-C Subjective Start: 03/16/19 18:42 Freq: Status: Active Protocol: Document 05/17/19 13:45 EG (Rec: 05/17/19 17:03 EG [email or web address]) OP-PT Subjective Patient Comments Patient Comments Patient reported that today was a good day. She was not feeling as much pain in the elbow today and has felt some improvement in the elbow. She feels as if she always feels better 2 days after therapy and then it goes back to where it was. Patient Questionnaires Quick Dash- Upper Extremity Quick Dash UE Score 31.8 Quick Dash UE Impairment 20 to 39% Impaired (Score 20- 39) PT-OP-F Manual Assessment Start: 03/16/19 18:42 Freq: Status: Active Protocol: Document 03/17/19 09:46 LR (Rec: 03/17/19 11:16 LR [id number]) Manual Assessments Soft Tissue Assessment Soft Tissue Mobility Assessment pain w/palpation of triceps, biceps and wrist fled and extensors PT-OP-J Posture/Palpation/Skin Start: 03/16/19 18:42 Freq: Status: Active Protocol: Document 03/17/19 09:46 LR (Rec: 03/17/19 11:16 [facility] [id number]) Posture Evaluation [facility] Postural Classification System [facility] Postural Classifications Posterior/Anterior Vertebral Compression Test 0 Elbow Flexion Test 0 PT-OP-K Range of Motion Start: 03/16/19 18:42 Freq: Status: Active Protocol: Document 05/17/19 13:45 EG (Rec: 05/17/19 17:03 EG [email or web address]) Cervical Spine Range of Motion Cervical Spine Active Degrees Testing Position Sitting Flexion 55 Extension 50 Rotation Left 40 Rotation Right 50 Lateral Flexion Left 40 Lateral Flexion Right 40 Comments no neck pain reported Shoulder Goniometric Range of Motion Shoulder ROM Limitations Comments Shoulder ROM was WNL but patient did have increased tension in L shoulder with abduction Elbow/Forearm Range of Motion Elbow/Forearm Right Active Elbow Flexion (degrees) 140 Elbow Extension (degrees) 5 Left Active Elbow Flexion (degrees) 140 Elbow Extension (degrees) 5 PT-OP-L Special Tests Start: 03/16/19 18:42 Freq: Status: Active Protocol: Document 05/17/19 13:45 EG (Rec: 05/17/19 17:05 EG [email or web address]) Special Tests Neural Special Tests- Upper Body Radial Nerve Tension Test Results - Comments Did feel increased tension but did not change with head turn PT-OP-M Strength Start: 03/16/19 18:42 Freq: Status: Active Protocol: Document 05/17/19 13:45 EG (Rec: 05/17/19 17:05 EG [email or web address]) Hand Environmental Geologist/Pinch Strength Hand Strength Right Comments 55lbs, 55lbs, 56lbs Left Comments 45lbs, 45lbs, 45lbs PT-OP-Q Treatments Start: 03/16/19 18:42 Freq: Status: Active Protocol: Document 05/17/19 13:45 EG (Rec: 05/17/19 17:03 EG [email or web address]) Therapeutic Exercises Supine Exercises Chest supervisor multifocal lens on foam roller Supine Exercise Name Foam Roll Chest supervisor multifocal lens with reciprical shoulder flexion Reps/Minutes 1 min, 10x each way Comments emphasize elbow extension pron/sup modified elbow ext Side left Resistance #2 Reps/Minutes 20 Comments cued scap stabilization eccentric elbow flexion Supine Exercise Name flexion/extension done in supination Resistance manual resistance Manual Therapy Treatment Soft Tissue Mobilization pec Body Location pec L and ant shoulder Mobilization Type Myofascial Release,Rolling biceps Body Location L bicep, brachioradialis Mobilization Type Cross-Friction,Myofascial Release,Rolling Intensity/Depth Superficial Body Position Hooklying Comments moderate along mm belly; superficail along distal border & circumfrential MFR on brachium, MWM elbow flex/ext and forearm pron/sup PT-OP-R Modalities Start: 03/16/19 18:42 Freq: Status: Active Protocol: Document 05/17/19 13:45 EG (Rec: 05/17/19 17:03 EG [email or web address]) Hot Pack/Cold Pack Treatment MHP L elbow Location L elbow Patient Position Sitting Treatment Duration (minutes) 15 Patient Tolerance Good PT-OP-T Assessment and Plan Start: 03/16/19 18:42 Freq: Status: Active Protocol: Document 05/17/19 13:45 EG (Rec: 05/17/19 17:03 EG [email or web address]) Physical Therapy Assessment Goals Quickdash Impairment 34.1 [facility] Goal (LTG) Pt will have improvement of quickdash to less than 10 to show greater ease with daily activities. 05/17/2019: patient scored 31.8 after filling out today. Slight improvement but would still like to acheive a score of 10. LTG Duration 06/14/2019 strength Short Term Goal (STG) Pt will be indep w/HEP. 05/17/2019: Met STG Duration 04/17/19 Quarryman Goal (LTG) Pt will have 5/5 elbow strength & shoulder strength B and 4/5 EFT along with equal professor of mathematics strength B to allow pt to do typical daily activities without pain. 05/17/2019: Continue progressing strength. professor of mathematics strength has improved LTG Duration 06/14/2019 lifting Short Term Goal (STG) Pt will have full AROM ext & supination of L elbow. 05/17/2019: Patient has full supination but still lacks 5 degrees of full extension of L elbow. STG Duration 04/17/19 Quarryman Goal (LTG) Pt will be able to lift as needed without inc pain. 05/17/2019: Patient still reports some pain with day to day activities. Continue progressing towards goal LTG Duration 06/14/2019 Progress Towards Goals Progress Towards Goals Progressing Toward Goals Progress Comments See notes in goals section Assessment Summary Assessment Patient tolerated treatment well today. She had decreased pain with movements and demonstrated increased professor of mathematics strength as well as less pain with cervical ROM.Shoulder ROM was within functional limits and did not seem to influence pain moveing in to elbow. She should continue with elbow strength training, elbow mobilization to increase ROM, as well as functional training to improve ability to perform daily activities with decreased pain. Physical Therapy Plan Frequency and Duration Frequency of Treatment 1x/Week Duration of Treatment 4 weeks Plan of Care Start Date 05/17/19 Plan of Care End Date 06/14/19 Therapeutic Interventions Therapeutic Interventions Aquatic Therapy,Home Exercise Program,Joint Mobilizations, Manual Therapy,Neuromuscular Re-education,Patient/Caregiver Education,Self-Care/Home Management,Soft Tissue Mobilization,Taping, Therapeutic Activities, Therapeutic Exercises Modalities Cold Pack/Ice Massage,Electric Stimulation,Hot Packs, Infrared Therapy,Iontophoresis ,Traction- Mechanical, Ultrasound Next Visit Focus/Plan Next Note Type Treatment Note Next Visit Plan Next tx consider K tape scap stab? Cont to progress per PT POC: strengthening as pt tolerates
--- NOTE | 2019-05-27 16:38 | PT.OTN ---
Current Diagnoses Lesion of ulnar nerve, unspecified upper limb (05/27/19) Medial epicondylitis, left elbow (05/27/19) Physical Therapy Treatment Note PT-OP-A Visit Information Start: 03/16/19 18:42 Freq: Status: Active Protocol: Document 05/27/19 16:10 SP (Rec: 05/27/19 16:19 SP [email or web address]) Out-Patient Physical Therapy Visit Information Visit Information Visit Type Treatment Note Visit Start Time 15:15 Visit Stop Time 16:00 Total Visit Minutes 45 Visit Number 11 Number of BRANCH GENERAL MANAGER Visits 0 PT-OP-B Current Condition Start: 03/16/19 18:42 Freq: Status: Active Protocol: Document 03/17/19 09:46 [facility] (Rec: 03/17/19 11:16 [facility] [id number]) Current Condition History of Current Condition Onset Date 2014 Current Complaints L post arm pain History of Current Condition Pt reports post brachium and and med forearm/post forearm & fingers, but does not rememeber which fingers but thinks 2-4. Pt reports it hadn 't made its way into her hand until 2019. Pt does not remember when the pain exactly started but it was sore every once in a while and eventually got worse. Pt neck pain does not typicaly relate to arm pain. 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 Pt has history of depression, anxiety and bipolar condition along with neck pain. Pt reports hisotry of reoccuring pain in all of her joints throguhout all of her body since 14. She has had to do PT on B knees, R shoulder coritzone shot, B hips give her trouble. Prior Treatments and Tests none Treatment Goals Patient/Caregiver Goals Dec pain, prevent progression of pain into hand, improve ability to lift PT-OP-C Subjective Start: 03/16/19 18:42 Freq: Status: Active Protocol: Document 05/27/19 16:10 SP (Rec: 05/27/19 16:19 SP [email or web address]) OP-PT Subjective Patient Comments Patient Comments Pt reports her elbow feels okay today. She is having some L shld pain. Pt quit her job at the [employer]. PT-OP-F Manual Assessment Start: 03/16/19 18:42 Freq: Status: Active Protocol: Document 03/17/19 09:46 [facility] (Rec: 03/17/19 11:16 [facility] [id number]) Manual Assessments Soft Tissue Assessment Soft Tissue Mobility Assessment pain w/palpation of triceps, biceps and wrist fled and extensors PT-OP-J Posture/Palpation/Skin Start: 03/16/19 18:42 Freq: Status: Active Protocol: Document 03/17/19 09:46 [facility] (Rec: 03/17/19 11:16 [facility] [id number]) Posture Evaluation [facility] Postural Classification System [facility] Postural Classifications Posterior/Anterior Vertebral Compression Test 0 Elbow Flexion Test 0 PT-OP-K Range of Motion Start: 03/16/19 18:42 Freq: Status: Active Protocol: Document 05/17/19 13:45 EG (Rec: 05/17/19 17:03 EG [email or web address]) Cervical Spine Range of Motion Cervical Spine Active Degrees Testing Position Sitting Flexion 55 Extension 50 Rotation Left 40 Rotation Right 50 Lateral Flexion Left 40 Lateral Flexion Right 40 Comments no neck pain reported Shoulder Goniometric Range of Motion Shoulder ROM Limitations Comments Shoulder ROM was WNL but patient did have increased tension in L shoulder with abduction Elbow/Forearm Range of Motion Elbow/Forearm Right Active Elbow Flexion (degrees) 140 Elbow Extension (degrees) 5 Left Active Elbow Flexion (degrees) 140 Elbow Extension (degrees) 5 PT-OP-L Special Tests Start: 03/16/19 18:42 Freq: Status: Active Protocol: Document 05/17/19 13:45 EG (Rec: 05/17/19 17:05 EG [email or web address]) Special Tests Neural Special Tests- Upper Body Radial Nerve Tension Test Results - Comments Did feel increased tension but did not change with head turn PT-OP-M Strength Start: 03/16/19 18:42 Freq: Status: Active Protocol: Document 05/17/19 13:45 EG (Rec: 05/17/19 17:05 EG [email or web address]) Hand Spraying Machine Operator/Pinch Strength Hand Strength Right Comments 55lbs, 55lbs, 56lbs Left Comments 45lbs, 45lbs, 45lbs PT-OP-Q Treatments Start: 03/16/19 18:42 Freq: Status: Active Protocol: Document 05/27/19 16:10 SP (Rec: 05/27/19 16:19 SP [email or web address]) Manual Therapy Treatment Soft Tissue Mobilization scalenes Body Location bilateral Mobilization Type Sustained Pressure Intensity/Depth Moderate Body Position Supine supraspinatus Body Location L Mobilization Type Rolling,Strumming,Sustained Pressure Intensity/Depth Moderate Body Position Supine infraspinatus Body Location L Mobilization Type Rolling,Sustained Pressure Intensity/Depth Deep Body Position Supine pec Body Location pec L and ant shoulder Mobilization Type Myofascial Release,Rolling Body Position Supine Joint Mobilizations T2-T6 Joint t-spine Direction transverse glide Body Position Sitting Comments transverse glide to the right to increase L cervical rot. GH Joint L Direction distraction, post/inf glide PT-OP-R Modalities Start: 03/16/19 18:42 Freq: Status: Active Protocol: Document 05/17/19 13:45 EG (Rec: 05/17/19 17:03 EG [email or web address]) Hot Pack/Cold Pack Treatment MHP L elbow Location L elbow Patient Position Sitting Treatment Duration (minutes) 15 Patient Tolerance Good PT-OP-T Assessment and Plan Start: 03/16/19 18:42 Freq: Status: Active Protocol: Document 05/27/19 16:10 SP (Rec: 05/27/19 16:19 SP [email or web address]) Physical Therapy Assessment Goals Quickdash Impairment 34.1 Technical Support Associate Goal (LTG) Pt will have improvement of quickdash to less than 10 to show greater ease with daily activities. 05/17/2019: patient scored 31.8 after filling out today. Slight improvement but would still like to acheive a score of 10. LTG Duration 06/14/2019 strength Short Term Goal (STG) Pt will be indep w/HEP. 05/17/2019: Met STG Duration 04/17/19 Nursing Home Goal (LTG) Pt will have 5/5 elbow strength & shoulder strength B and 4/5 EFT along with equal powerhouse engineer strength B to allow pt to do typical daily activities without pain. 05/17/2019: Continue progressing strength. powerhouse engineer strength has improved LTG Duration 06/14/2019 lifting Short Term Goal (STG) Pt will have full AROM ext & supination of L elbow. 05/17/2019: Patient has full supination but still lacks 5 degrees of full extension of L elbow. STG Duration 04/17/19 Technical Support Associate Goal (LTG) Pt will be able to lift as needed without inc pain. 05/17/2019: Patient still reports some pain with day to day activities. Continue progressing towards goal LTG Duration 06/14/2019 Assessment Summary Assessment Pt presents to PT today with L elbow/shld pain when shld passively abducted to 80 degrees. Cervical AROM lacking L>R. L GH joint mobs and STM to L infra/supraspinatus increased joint mobility at shld however did not help with cervical rotation or elbow pain. Transverse glides at T2- T6 improved cervical rotation and decreased shld/elbow pain. Suspect hypomobility at cervical and thoracic spine is contributing to pt's elbow pain. Jt mobs at those structures improved GH AROM to full-range. Physical Therapy Plan Frequency and Duration Frequency of Treatment 1x/Week Duration of Treatment 4 weeks Plan of Care Start Date 05/17/19 Plan of Care End Date 06/14/19 Next Visit Focus/Plan Next Note Type Treatment Note Next Visit Plan reassess scapular control, continue with STM and jt mobs at c-spine.
--- NOTE | 2019-05-31 12:59 | PT.OTN ---
Current Diagnoses Lesion of ulnar nerve, unspecified upper limb (05/31/19) Medial epicondylitis, left elbow (05/31/19) Physical Therapy Treatment Note PT-OP-A Visit Information Start: 03/16/19 18:42 Freq: Status: Active Protocol: Document 05/31/19 08:13 [facility] (Rec: 05/31/19 12:42 [facility] [id number]) Out-Patient Physical Therapy Visit Information Visit Information Visit Type Progress Note Visit Start Time 08:15 Visit Stop Time 09:00 Total Visit Minutes 45 Visit Number 12 Number of PROOF CARRIER Visits 0 PT-OP-B Current Condition Start: 03/16/19 18:42 Freq: Status: Active Protocol: Document 03/17/19 09:46 [facility] (Rec: 03/17/19 11:16 [facility] [id number]) Current Condition History of Current Condition Onset Date 2014 Current Complaints L post arm pain History of Current Condition Pt reports post brachium and and med forearm/post forearm & fingers, but does not rememeber which fingers but thinks 2-4. Pt reports it hadn 't made its way into her hand until 2019. Pt does not remember when the pain exactly started but it was sore every once in a while and eventually got worse. Pt neck pain does not typicaly relate to arm pain. 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 Pt has history of depression, anxiety and bipolar condition along with neck pain. Pt reports hisotry of reoccuring pain in all of her joints throguhout all of her body since 14. She has had to do PT on B knees, R shoulder coritzone shot, B hips give her trouble. Prior Treatments and Tests none Treatment Goals Patient/Caregiver Goals Dec pain, prevent progression of pain into hand, improve ability to lift PT-OP-C Subjective Start: 03/16/19 18:42 Freq: Status: Active Protocol: Document 05/31/19 08:13 [facility] (Rec: 05/31/19 12:42 [facility] [id number]) OP-PT Subjective Patient Comments Patient Comments Pt reports she feels like last session helped. today is a better day than yesterday Patient Reported Progress Improving PT-OP-F Manual Assessment Start: 03/16/19 18:42 Freq: Status: Active Protocol: Document 03/17/19 09:46 [facility] (Rec: 03/17/19 11:16 [facility] [id number]) Manual Assessments Soft Tissue Assessment Soft Tissue Mobility Assessment pain w/palpation of triceps, biceps and wrist fled and extensors PT-OP-J Posture/Palpation/Skin Start: 03/16/19 18:42 Freq: Status: Active Protocol: Document 03/17/19 09:46 [facility] (Rec: 03/17/19 11:16 [facility] [id number]) Posture Evaluation [facility] Postural Classification System [facility] Postural Classifications Posterior/Anterior Vertebral Compression Test 0 Elbow Flexion Test 0 PT-OP-K Range of Motion Start: 03/16/19 18:42 Freq: Status: Active Protocol: Document 05/31/19 08:13 [facility] (Rec: 05/31/19 12:42 [facility] [id number]) Elbow/Forearm Range of Motion Elbow/Forearm Left Active Elbow Flexion (degrees) 142 Elbow Extension (degrees) 0 PT-OP-L Special Tests Start: 03/16/19 18:42 Freq: Status: Active Protocol: Document 05/17/19 13:45 EG (Rec: 05/17/19 17:05 EG [email or web address]) Special Tests Neural Special Tests- Upper Body Radial Nerve Tension Test Results - Comments Did feel increased tension but did not change with head turn PT-OP-M Strength Start: 03/16/19 18:42 Freq: Status: Active Protocol: Document 05/31/19 08:13 [facility] (Rec: 05/31/19 12:42 [facility] [id number]) Elbow/Forearm Strength Elbow and Forearm Manual Muscle Testing Right Flexion (C6) 5 Normal Extension (C7) 5 Normal Pronation 5 Normal Supination 5 Normal Left Flexion (C6) 4 Good Extension (C7) 4 Good Pronation 4 Good Supination 4 Good Reason Not Measured Pain Comments EFT:1/5 PT-OP-Q Treatments Start: 03/16/19 18:42 Freq: Status: Active Protocol: Document 05/31/19 08:13 [facility] (Rec: 05/31/19 12:42 [facility] [id number]) Therapeutic Exercises Supine Exercises axial elongation Reps/Minutes 5secx5 Standing Exercises Habd Standing Exercise Name then flex Side bilateral Reps/Minutes 8 Comments vs wall rows Side bilateral Equipment Used L2 Reps/Minutes 15 ER Side bilateral Equipment Used L1 Reps/Minutes 15 Comments against wall wall posture Standing Exercise Name w/90/90 HAbd Side bilateral Reps/Minutes 10 Manual Therapy Treatment Soft Tissue Mobilization scalenes Body Location L scalenes, SCM & UT Mobilization Type Sustained Pressure Intensity/Depth Moderate Body Position Supine Joint Mobilizations ribs Comments 1. 1st rib caudal FM w/cover position 2. s/l 2nd rib caudal FM w/abd c/r scap thoracic Joint L Direction med & inf Body Position Sidelying GH Joint L Direction post FM PT-OP-R Modalities Start: 03/16/19 18:42 Freq: Status: Active Protocol: Document 05/17/19 13:45 EG (Rec: 05/17/19 17:03 EG [email or web address]) Hot Pack/Cold Pack Treatment MHP L elbow Location L elbow Patient Position Sitting Treatment Duration (minutes) 15 Patient Tolerance Good PT-OP-T Assessment and Plan Start: 03/16/19 18:42 Freq: Status: Active Protocol: Document 05/31/19 08:13 LR (Rec: 05/31/19 12:42 [facility] [id number]) Physical Therapy Assessment Goals Quickdash Impairment 34.1 Health Administrator Goal (LTG) Pt will have improvement of quickdash to less than 10 to show greater ease with daily activities. 05/30-n/t 05/17/2019: patient scored 31.8 after filling out today. Slight improvement but would still like to acheive a score of 10. LTG Duration 07/30/29 strength Short Term Goal (STG) Pt will be indep w/HEP. 05/17/2019: Met STG Duration achieved Intermediate Goal (LTG) Pt will have 5/5 elbow strength & shoulder strength B and 4/5 EFT along with equal manager quality compliance strength B to allow pt to do typical daily activities without pain. 05/17/2019: Continue progressing strength. manager quality compliance strength has improved 05/30-significant improvment LTG Duration 07/31/19 lifting Short Term Goal (STG) Pt will have full AROM ext & supination of L elbow. 05/17/2019: Patient has full supination but still lacks 5 degrees of full extension of L elbow. STG Duration achieved Intermediate Goal (LTG) Pt will be able to lift as needed without inc pain. 05/17/2019: Patient still reports some pain with day to day activities. 05/30:Continue progressing towards goal LTG Duration 07/31/19 Assessment Summary Assessment Pt is making excellent progress with ROM. She can now do full ext but is unable to hyperextend on her L side. She improves with elbow symptoms with manual work cervically and at shoulder which indicates likely having neural or fascial tension. she would benefit from cont PT in order to cont to progress her mobility. Physical Therapy Plan Frequency and Duration Frequency of Treatment 1x/Week Duration of Treatment 2 months Plan of Care Start Date 05/31/19 Plan of Care End Date 07/31/19 Therapeutic Interventions Therapeutic Interventions Aquatic Therapy,Home Exercise Program,Joint Mobilizations, Manual Therapy,Neuromuscular Re-education,Patient/Caregiver Education,Self-Care/Home Management,Soft Tissue Mobilization,Taping, Therapeutic Activities, Therapeutic Exercises Modalities Cold Pack/Ice Massage,Electric Stimulation,Hot Packs, Infrared Therapy,Iontophoresis ,Traction- Mechanical, Ultrasound Next Visit Focus/Plan Next Note Type Treatment Note Next Visit Plan reassess scapular control, continue with STM and jt mobs at c-spine.
--- NOTE | 2019-05-31 12:59 | PT.OPPOC ---
Physical, Occupational & Speech Therapy At [facility] Current Diagnoses Lesion of ulnar nerve, unspecified upper limb (05/31/19) Medial epicondylitis, left elbow (05/31/19) Visit Care Team Role Provider Type Nancy Goldstein MD Attending Provider Non-Staff Primary Care Provider Specialty: Family Practice Address: [address] [place] [address], [phone] Fax: Email: Plan Of Care PT-OP-T Assessment and Plan Start: 03/16/19 18:42 Freq: Status: Active Protocol: Document 05/31/19 08:13 [facility] (Rec: 05/31/19 12:42 [facility] [id number]) Physical Therapy Assessment Goals Quickdash Impairment 34.1 Technical Consultant Goal (LTG) Pt will have improvement of quickdash to less than 10 to show greater ease with daily activities. 05/30-n/t 05/17/2019: patient scored 31.8 after filling out today. Slight improvement but would still like to acheive a score of 10. LTG Duration 07/30/29 strength Short Term Goal (STG) Pt will be indep w/HEP. 05/17/2019: Met STG Duration achieved [facility] Goal (LTG) Pt will have 5/5 elbow strength & shoulder strength B and 4/5 EFT along with equal safety administrator strength B to allow pt to do typical daily activities without pain. 05/17/2019: Continue progressing strength. safety administrator strength has improved 05/30-significant improvment LTG Duration 07/31/19 lifting Short Term Goal (STG) Pt will have full AROM ext & supination of L elbow. 05/17/2019: Patient has full supination but still lacks 5 degrees of full extension of L elbow. STG Duration achieved [facility] Goal (LTG) Pt will be able to lift as needed without inc pain. 05/17/2019: Patient still reports some pain with day to day activities. 05/30:Continue progressing towards goal LTG Duration 07/31/19 Assessment Summary Assessment Pt is making excellent progress with ROM. She can now do full ext but is unable to hyperextend on her L side. She improves with elbow symptoms with manual work cervically and at shoulder which indicates likely having neural or fascial tension. she would benefit from cont PT in order to cont to progress her mobility. Physical Therapy Plan Frequency and Duration Frequency of Treatment 1x/Week Duration of Treatment 2 months Plan of Care Start Date 05/31/19 Plan of Care End Date 07/31/19 Therapeutic Interventions Therapeutic Interventions Aquatic Therapy,Home Exercise Program,Joint Mobilizations, Manual Therapy,Neuromuscular Re-education,Patient/Caregiver Education,Self-Care/Home Management,Soft Tissue Mobilization,Taping, Therapeutic Activities, Therapeutic Exercises Modalities Cold Pack/Ice Massage,Electric Stimulation,Hot Packs, Infrared Therapy,Iontophoresis ,Traction- Mechanical, Ultrasound Next Visit Focus/Plan Next Note Type Treatment Note Next Visit Plan reassess scapular control, continue with STM and jt mobs at c-spine. Plan of Care Dates Plan of Care Start Date 05/31/19 Plan of Care End Date 07/31/19 Electronically Signed by: Vickie Siegel, PT 05/31/19 [id number] Please Sign and Return: I have reviewed this Plan of Care and certify that the skilled therapy services above are required to meet the patient?s needs. Physician Signature Date Printed Name and Credentials Clinical Instructor Signature Printed Name and Credentials
--- NOTE | 2019-08-09 16:24 | PT.OTN ---
Current Diagnoses Lesion of ulnar nerve, unspecified upper limb (08/09/19) Medial epicondylitis, left elbow (08/09/19) Physical Therapy Treatment Note PT-OP-A Visit Information Start: 03/16/19 18:42 Freq: Status: Active Protocol: Document 08/09/19 08:54 [facility] (Rec: 08/09/19 13:46 [facility] [id number]) Out-Patient Physical Therapy Visit Information Visit Information Visit Type Progress Note Visit Start Time 09:00 Visit Stop Time 09:43 Total Visit Minutes 43 Visit Number 12 Number of AUTO CRANE DRIVER Visits 0 PT-OP-B Current Condition Start: 03/16/19 18:42 Freq: Status: Active Protocol: Document 03/17/19 09:46 [facility] (Rec: 03/17/19 11:16 [facility] [id number]) Current Condition History of Current Condition Onset Date 2014 Current Complaints L post arm pain History of Current Condition Pt reports post brachium and and med forearm/post forearm & fingers, but does not rememeber which fingers but thinks 2-4. Pt reports it hadn 't made its way into her hand until 2019. Pt does not remember when the pain exactly started but it was sore every once in a while and eventually got worse. Pt neck pain does not typicaly relate to arm pain. 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 Pt has history of depression, anxiety and bipolar condition along with neck pain. Pt reports hisotry of reoccuring pain in all of her joints throguhout all of her body since 14. She has had to do PT on B knees, R shoulder coritzone shot, B hips give her trouble. Prior Treatments and Tests none Treatment Goals Patient/Caregiver Goals Dec pain, prevent progression of pain into hand, improve ability to lift PT-OP-C Subjective Start: 03/16/19 18:42 Freq: Status: Active Protocol: Document 08/09/19 08:54 [facility] (Rec: 08/09/19 13:46 [facility] [id number]) OP-PT Subjective Patient Comments Patient Comments Pt reprots she has started noticing pain starts in L shoulder then radiates to L elbow. Notes she was compliant with exercsesis initially when PT clinic closed but not as much recently. Feels worse since she was not able to attend PT Patient Reported Progress Worse Patient Questionnaires Quick Dash- Upper Extremity Quick Dash UE Score 43.18 PT-OP-F Manual Assessment Start: 03/16/19 18:42 Freq: Status: Active Protocol: Document 03/17/19 09:46 [facility] (Rec: 03/17/19 11:16 [facility] [id number]) Manual Assessments Soft Tissue Assessment Soft Tissue Mobility Assessment pain w/palpation of triceps, biceps and wrist fled and extensors PT-OP-J Posture/Palpation/Skin Start: 03/16/19 18:42 Freq: Status: Active Protocol: Document 03/17/19 09:46 [facility] (Rec: 03/17/19 11:16 [facility] [id number]) Posture Evaluation [facility] Postural Classification System Jose Francisco Postural Classifications Posterior/Anterior Vertebral Compression Test 0 Elbow Flexion Test 0 PT-OP-K Range of Motion Start: 03/16/19 18:42 Freq: Status: Active Protocol: Document 08/09/19 08:54 [facility] (Rec: 08/09/19 13:46 [facility] [id number]) Cervical Spine Range of Motion Cervical Spine Active Degrees Testing Position Sitting Flexion 47 Extension 56 Rotation Left 54 Rotation Right 69 Lateral Flexion Left 36 Lateral Flexion Right 33 Comments pain post neck on L side>R w/ ext, pain L UT with L rotation Shoulder Goniometric Range of Motion Shoulder Right Active Shoulder ROM WFL Yes Left Active Flexion 150 Extension 74 Abduction 166 External Rotation at 90 degrees 74 Abduction Elbow/Forearm Range of Motion Elbow/Forearm Left Active Elbow Flexion (degrees) 137 Elbow Extension (degrees) 18 PT-OP-L Special Tests Start: 03/16/19 18:42 Freq: Status: Active Protocol: Document 08/09/19 08:54 [facility] (Rec: 08/09/19 13:46 [facility] [id number]) Special Tests Neural Special Tests- Upper Body Radial Nerve Tension Test Results neg L Median Nerve Tension Test Results positive L Ulnar Nerve Tension Test Results positive L Vascular Special Tests Costoclavicular Maneuver Test Results negq Patricio Test Test Results Pos PT-OP-M Strength Start: 03/16/19 18:42 Freq: Status: Active Protocol: Document 08/09/19 08:54 [facility] (Rec: 08/09/19 13:46 [facility] [id number]) Shoulder Strength Shoulder Manual Muscle Testing Right Flexion 5 Normal Extension 5 Normal Abduction (C5) 5 Normal External Rotation 4+ Good+ Internal Rotation 4+ Good+ Left Flexion 4- Good- Extension 4- Good- Abduction (C5) 4- Good- External Rotation 4 Good Internal Rotation 4- Good- Comments pain with flex, abd, ext Elbow/Forearm Strength Elbow and Forearm Manual Muscle Testing Right Flexion (C6) 5 Normal Extension (C7) 5 Normal Pronation 5 Normal Supination 5 Normal Left Flexion (C6) 4 Good Extension (C7) 4 Good Pronation 4 Good Supination 4 Good Reason Not Measured Pain Comments EFT:2/5, breaks at L shoulder blade Wrist Strength Wrist Manual Muscle Testing Right Reason Not Measured WFL Left Flexion (C7) 4 Good Extension (C6) 4 Good Ulnar Deviation 4 Good Radial Deviation 4 Good PT-OP-Q Treatments Start: 03/16/19 18:42 Freq: Status: Active Protocol: Document 08/09/19 08:54 [facility] (Rec: 08/09/19 13:46 [facility] [id number]) Therapeutic Exercises Supine Exercises axial elongation Reps/Minutes 5secx5 Sidelying Exercises roll & reach Side left Reps/Minutes 5 Sitting Exercises stretch Sitting Exercise Name UT& LS Side bilateral Reps/Minutes 30 sec Standing Exercises rows Standing Exercise Name straight elbow ext Side bilateral Equipment Used L2 Reps/Minutes 15 wall posture Standing Exercise Name w/90/90 HAbd Side bilateral Reps/Minutes 10 Manual Therapy Treatment Soft Tissue Mobilization lats Body Location L Mobilization Type Strumming Body Position Sidelying Comments w/fwd flex pec Body Location pec L and ant shoulder Mobilization Type Myofascial Release,Rolling Body Position Supine PT-OP-R Modalities Start: 03/16/19 18:42 Freq: Status: Active Protocol: Document 05/17/19 13:45 [facility] (Rec: 05/17/19 17:03 [facility] [id number]) Hot Pack/Cold Pack Treatment MHP L elbow Location L elbow Patient Position Sitting Treatment Duration (minutes) 15 Patient Tolerance Good PT-OP-T Assessment and Plan Start: 03/16/19 18:42 Freq: Status: Active Protocol: Document 08/09/19 08:54 [facility] (Rec: 08/09/19 13:46 [facility] [id number]) Physical Therapy Assessment Goals Quickdash Impairment 34.1 Non Ferrous Material Handler Goal (LTG) Pt will have improvement of quickdash to less than 10 to show greater ease with daily activities. 05/30-n/t /-still limited 05/17/2019: patient scored 31.8 after filling out today. Slight improvement but would still like to acheive a score of 10. LTG Duration 10/09/19 strength Short Term Goal (STG) Pt will be indep w/HEP. 05/17/2019: Met STG Duration progressing since PT been closed Non Ferrous Material Handler Goal (LTG) Pt will have 5/5 elbow strength & shoulder strength B and 4/5 EFT along with equal neon tube bender strength B to allow pt to do typical daily activities without pain. 05/17/2019: Continue progressing strength. neon tube bender strength has improved 05/30-significant improvment LTG Duration 10/09/19 lifting Short Term Goal (STG) Pt will have full AROM ext & supination of L elbow. 05/17/2019: Patient has full supination but still lacks 5 degrees of full extension of L elbow. STG Duration 09/08/19 restarted to regression with no PT Long-Term Goal (LTG) Pt will be able to lift as needed without inc pain. 05/17/2019: Patient still reports some pain with day to day activities. 05/30:Continue progressing towards goal LTG Duration 10/09/19 Assessment Summary Assessment Pt shows dec in progress likely [facility]. She is more aware that her pain is radiating more and there was obvious symptoms of ulnar and median n entrapment with positive tests. Impact test showed improved shoulder strength with cervical stabilizer exercise. Pt would benefit from resuming PT to cont to work on posture, strength, ROM, and overall functional mobility in order to return to her typical activites without pain. Physical Therapy Plan Frequency and Duration Frequency of Treatment 1-2x/Week Duration of Treatment 2 months Plan of Care Start Date 08/09/19 Plan of Care End Date 10/09/19 Therapeutic Interventions Therapeutic Interventions Aquatic Therapy,Home Exercise Program,Joint Mobilizations, Manual Therapy,Neuromuscular Re-education,Patient/Caregiver Education,Self-Care/Home Management,Soft Tissue Mobilization,Taping, Therapeutic Activities, Therapeutic Exercises Modalities Cold Pack/Ice Massage,Electric Stimulation,Hot Packs, Infrared Therapy,Iontophoresis ,Traction- Mechanical, Ultrasound Next Visit Focus/Plan Next Note Type Treatment Note Next Visit Plan reassess scapular control, continue with STM and jt mobs at c-spine.
--- NOTE | 2019-08-09 16:24 | PT.OPPOC ---
Physical, Occupational & Speech Therapy At [facility] Current Diagnoses Lesion of ulnar nerve, unspecified upper limb (08/09/19) Medial epicondylitis, left elbow (08/09/19) Visit Care Team Role Provider Type Nancy Goldstein MD Attending Provider Non-Staff Primary Care Provider Specialty: Family Practice Address: [address] [place] [address], [phone] Fax: Email: Plan Of Care PT-OP-T Assessment and Plan Start: 03/16/19 18:42 Freq: Status: Active Protocol: Document 08/09/19 08:54 [facility] (Rec: 08/09/19 13:46 [facility] [id number]) Physical Therapy Assessment Goals Quickdash Impairment 34.1 Nursing Admin Goal (LTG) Pt will have improvement of quickdash to less than 10 to show greater ease with daily activities. 05/30-n/t 08/08-still limited 05/17/2019: patient scored 31.8 after filling out today. Slight improvement but would still like to acheive a score of 10. LTG Duration 10/09/19 strength Short Term Goal (STG) Pt will be indep w/HEP. 05/17/2019: Met STG Duration progressing since PT been closed Longterm Goal (LTG) Pt will have 5/5 elbow strength & shoulder strength B and 4/5 EFT along with equal health services director strength B to allow pt to do typical daily activities without pain. 05/17/2019: Continue progressing strength. health services director strength has improved 05/30-significant improvment LTG Duration 10/09/19 lifting Short Term Goal (STG) Pt will have full AROM ext & supination of L elbow. 05/17/2019: Patient has full supination but still lacks 5 degrees of full extension of L elbow. STG Duration 09/08/19 restarted to regression with no PT Nursing Admin Goal (LTG) Pt will be able to lift as needed without inc pain. 05/17/2019: Patient still reports some pain with day to day activities. 05/30:Continue progressing towards goal LTG Duration 10/09/19 Assessment Summary Assessment Pt shows dec in progress likely d/t [facility]. She is more aware that her pain is radiating more and there was obvious symptoms of ulnar and median n entrapment with positive tests. Impact test showed improved shoulder strength with cervical stabilizer exercise. Pt would benefit from resuming PT to cont to work on posture, strength, ROM, and overall functional mobility in order to return to her typical activites without pain. Physical Therapy Plan Frequency and Duration Frequency of Treatment 1-2x/Week Duration of Treatment 2 months Plan of Care Start Date 08/09/19 Plan of Care End Date 10/09/19 Therapeutic Interventions Therapeutic Interventions Aquatic Therapy,Home Exercise Program,Joint Mobilizations, Manual Therapy,Neuromuscular Re-education,Patient/Caregiver Education,Self-Care/Home Management,Soft Tissue Mobilization,Taping, Therapeutic Activities, Therapeutic Exercises Modalities Cold Pack/Ice Massage,Electric Stimulation,Hot Packs, Infrared Therapy,Iontophoresis ,Traction- Mechanical, Ultrasound Next Visit Focus/Plan Next Note Type Treatment Note Next Visit Plan reassess scapular control, continue with STM and jt mobs at c-spine. Plan of Care Dates Plan of Care Start Date 08/09/19 Plan of Care End Date 10/09/19 Electronically Signed by: Vickie Siegel, PT 08/09/19 1895 Please Sign and Return: I have reviewed this Plan of Care and certify that the skilled therapy services above are required to meet the patient?s needs. Physician Signature Date Printed Name and Credentials Clinical Instructor Signature Printed Name and Credentials
--- NOTE | 2019-08-11 13:56 | PT.OTN ---
Current Diagnoses Lesion of ulnar nerve, unspecified upper limb (08/11/19) Medial epicondylitis, left elbow (08/11/19) Physical Therapy Treatment Note PT-OP-A Visit Information Start: 03/16/19 18:42 Freq: Status: Active Protocol: Document 08/11/19 13:51 [facility] (Rec: 08/11/19 13:56 [facility] [id number]) Out-Patient Physical Therapy Visit Information Visit Information Visit Type Treatment Note Visit Start Time 13:00 Visit Stop Time 13:45 Total Visit Minutes 45 Visit Number 13 Number of INTERNAL MEDICINE NURSE Visits 0 PT-OP-B Current Condition Start: 03/16/19 18:42 Freq: Status: Active Protocol: Document 03/17/19 09:46 [facility] (Rec: 03/17/19 11:16 [facility] [id number]) Current Condition History of Current Condition Onset Date 2014 Current Complaints L post arm pain History of Current Condition Pt reports post brachium and and med forearm/post forearm & fingers, but does not rememeber which fingers but thinks 2-4. Pt reports it hadn 't made its way into her hand until 2019. Pt does not remember when the pain exactly started but it was sore every once in a while and eventually got worse. Pt neck pain does not typicaly relate to arm pain. 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 Pt has history of depression, anxiety and bipolar condition along with neck pain. Pt reports hisotry of reoccuring pain in all of her joints throguhout all of her body since 14. She has had to do PT on B knees, R shoulder coritzone shot, B hips give her trouble. Prior Treatments and Tests none Treatment Goals Patient/Caregiver Goals Dec pain, prevent progression of pain into hand, improve ability to lift PT-OP-C Subjective Start: 03/16/19 18:42 Freq: Status: Active Protocol: Document 08/11/19 13:51 [facility] (Rec: 08/11/19 13:56 [facility] [id number]) OP-PT Subjective Patient Comments Patient Comments pt reports she is still feeling the left sided elbow pain and it feels like it goes to the second and third fingers Patient Reported Progress Same PT-OP-F Manual Assessment Start: 03/16/19 18:42 Freq: Status: Active Protocol: Document 03/17/19 09:46 [facility] (Rec: 03/17/19 11:16 [facility] [id number]) Manual Assessments Soft Tissue Assessment Soft Tissue Mobility Assessment pain w/palpation of triceps, biceps and wrist fled and extensors PT-OP-J Posture/Palpation/Skin Start: 03/16/19 18:42 Freq: Status: Active Protocol: Document 03/17/19 09:46 [facility] (Rec: 03/17/19 11:16 [facility] [id number]) Posture Evaluation [facility] Postural Classification System Jose Francisco Postural Classifications Posterior/Anterior Vertebral Compression Test 0 Elbow Flexion Test 0 PT-OP-K Range of Motion Start: 03/16/19 18:42 Freq: Status: Active Protocol: Document 08/09/19 08:54 [facility] (Rec: 08/09/19 13:46 [facility] [id number]) Cervical Spine Range of Motion Cervical Spine Active Degrees Testing Position Sitting Flexion 47 Extension 56 Rotation Left 54 Rotation Right 69 Lateral Flexion Left 36 Lateral Flexion Right 33 Comments pain post neck on L side>R w/ ext, pain L UT with L rotation Shoulder Goniometric Range of Motion Shoulder Right Active Shoulder ROM WFL Yes Left Active Flexion 150 Extension 74 Abduction 166 External Rotation at 90 degrees 74 Abduction Elbow/Forearm Range of Motion Elbow/Forearm Left Active Elbow Flexion (degrees) 137 Elbow Extension (degrees) 18 PT-OP-L Special Tests Start: 03/16/19 18:42 Freq: Status: Active Protocol: Document 08/09/19 08:54 [facility] (Rec: 08/09/19 13:46 [facility] [id number]) Special Tests Neural Special Tests- Upper Body Radial Nerve Tension Test Results neg L Median Nerve Tension Test Results positive L Ulnar Nerve Tension Test Results positive L Vascular Special Tests Costoclavicular Maneuver Test Results negq Patricio Test Test Results Pos PT-OP-M Strength Start: 03/16/19 18:42 Freq: Status: Active Protocol: Document 08/09/19 08:54 [facility] (Rec: 08/09/19 13:46 [facility] [id number]) Shoulder Strength Shoulder Manual Muscle Testing Right Flexion 5 Normal Extension 5 Normal Abduction (C5) 5 Normal External Rotation 4+ Good+ Internal Rotation 4+ Good+ Left Flexion 4- Good- Extension 4- Good- Abduction (C5) 4- Good- External Rotation 4 Good Internal Rotation 4- Good- Comments pain with flex, abd, ext Elbow/Forearm Strength Elbow and Forearm Manual Muscle Testing Right Flexion (C6) 5 Normal Extension (C7) 5 Normal Pronation 5 Normal Supination 5 Normal Left Flexion (C6) 4 Good Extension (C7) 4 Good Pronation 4 Good Supination 4 Good Reason Not Measured Pain Comments EFT:2/5, breaks at L shoulder blade Wrist Strength Wrist Manual Muscle Testing Right Reason Not Measured WFL Left Flexion (C7) 4 Good Extension (C6) 4 Good Ulnar Deviation 4 Good Radial Deviation 4 Good PT-OP-Q Treatments Start: 03/16/19 18:42 Freq: Status: Active Protocol: Document 08/11/19 13:51 [facility] (Rec: 08/11/19 13:56 [facility] [id number]) Therapeutic Exercises Supine Exercises Chest mechanical developer prover on foam roller Supine Exercise Name 1/2 foam roll chest mechanical developer prover Reps/Minutes x 5 min Sidelying Exercises roll & reach Side left Reps/Minutes 5 Sitting Exercises stretch Sitting Exercise Name UT& LS Side bilateral Reps/Minutes 30 sec Manual Therapy Treatment Soft Tissue Mobilization scalenes Body Location L scalenes, SCM & UT Mobilization Type Sustained Pressure Intensity/Depth Moderate Body Position Supine pec Body Location pec L and ant shoulder Mobilization Type Myofascial Release,Rolling Body Position Supine Joint Mobilizations ribs Comments 1. 1st rib caudal FM w/cover position 2. s/l 2nd rib caudal FM w/abd c/r Manual Traction Cervical Details manual cervical traction Body Position Supine Reps/Duration 3 minutes PT-OP-R Modalities Start: 03/16/19 18:42 Freq: Status: Active Protocol: Document 05/17/19 13:45 [facility] (Rec: 05/17/19 17:03 [facility] [id number]) Hot Pack/Cold Pack Treatment MHP L elbow Location L elbow Patient Position Sitting Treatment Duration (minutes) 15 Patient Tolerance Good PT-OP-T Assessment and Plan Start: 03/16/19 18:42 Freq: Status: Active Protocol: Document 08/11/19 13:51 [facility] (Rec: 08/11/19 13:56 [facility] [id number]) Physical Therapy Assessment Assessment Summary Assessment pt has pain with active supination, she had positive medial nerve tension test. Found tightness in the scalenes today. Pec tightness also may be contributing to elbow symptoms. Advised her to use a rolled up yoga mat for home to help with thoracic mobilizations and opening up the chest Physical Therapy Plan Frequency and Duration Frequency of Treatment 1-2x/Week Duration of Treatment 2 months Plan of Care Start Date 08/09/19 Plan of Care End Date 10/09/19 Therapeutic Interventions Therapeutic Interventions Aquatic Therapy,Home Exercise Program,Joint Mobilizations, Manual Therapy,Neuromuscular Re-education,Patient/Caregiver Education,Self-Care/Home Management,Soft Tissue Mobilization,Taping, Therapeutic Activities, Therapeutic Exercises Modalities Cold Pack/Ice Massage,Electric Stimulation,Hot Packs, Infrared Therapy,Iontophoresis ,Traction- Mechanical, Ultrasound Next Visit Focus/Plan Next Note Type Treatment Note Next Visit Plan reassess scapular control, continue with STM and jt mobs at c-spine.
--- NOTE | 2019-08-16 14:55 | PT.OTN ---
Current Diagnoses Lesion of ulnar nerve, unspecified upper limb (08/16/19) Medial epicondylitis, left elbow (08/16/19) Physical Therapy Treatment Note PT-OP-A Visit Information Start: 03/16/19 18:42 Freq: Status: Active Protocol: Document 08/16/19 14:46 [facility] (Rec: 08/16/19 14:55 [facility] [id number]) Out-Patient Physical Therapy Visit Information Visit Information Visit Type Treatment Note Visit Start Time 13:45 Visit Stop Time 14:30 Total Visit Minutes 45 Visit Number 14 Number of [place] Visits 0 PT-OP-B Current Condition Start: 03/16/19 18:42 Freq: Status: Active Protocol: Document 03/17/19 09:46 [facility] (Rec: 03/17/19 11:16 [facility] [id number]) Current Condition History of Current Condition Onset Date 2014 Current Complaints L post arm pain History of Current Condition Pt reports post brachium and and med forearm/post forearm & fingers, but does not rememeber which fingers but thinks 2-4. Pt reports it hadn 't made its way into her hand until 2019. Pt does not remember when the pain exactly started but it was sore every once in a while and eventually got worse. Pt neck pain does not typicaly relate to arm pain. 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 Pt has history of depression, anxiety and bipolar condition along with neck pain. Pt reports hisotry of reoccuring pain in all of her joints throguhout all of her body since 14. She has had to do PT on B knees, R shoulder coritzone shot, B hips give her trouble. Prior Treatments and Tests none Treatment Goals Patient/Caregiver Goals Dec pain, prevent progression of pain into hand, improve ability to lift PT-OP-C Subjective Start: 03/16/19 18:42 Freq: Status: Active Protocol: Document 08/16/19 14:46 [facility] (Rec: 08/16/19 14:55 [facility] [id number]) OP-PT Subjective Patient Comments Patient Comments pt reports she worked at the [employer] this past weekend. She had to do a lot of lifting of item out of the van at odd angles and this really aggraveted her left elbow Patient Reported Progress Worse PT-OP-F Manual Assessment Start: 03/16/19 18:42 Freq: Status: Active Protocol: Document 03/17/19 09:46 [facility] (Rec: 03/17/19 11:16 [facility] [id number]) Manual Assessments Soft Tissue Assessment Soft Tissue Mobility Assessment pain w/palpation of triceps, biceps and wrist fled and extensors PT-OP-J Posture/Palpation/Skin Start: 03/16/19 18:42 Freq: Status: Active Protocol: Document 03/17/19 09:46 [facility] (Rec: 03/17/19 11:16 [facility] [id number]) Posture Evaluation [facility] Postural Classification System [facility] Postural Classifications Posterior/Anterior Vertebral Compression Test 0 Elbow Flexion Test 0 PT-OP-K Range of Motion Start: 03/16/19 18:42 Freq: Status: Active Protocol: Document 08/09/19 08:54 [facility] (Rec: 08/09/19 13:46 [facility] [id number]) Cervical Spine Range of Motion Cervical Spine Active Degrees Testing Position Sitting Flexion 47 Extension 56 Rotation Left 54 Rotation Right 69 Lateral Flexion Left 36 Lateral Flexion Right 33 Comments pain post neck on L side>R w/ ext, pain L UT with L rotation Shoulder Goniometric Range of Motion Shoulder Right Active Shoulder ROM WFL Yes Left Active Flexion 150 Extension 74 Abduction 166 External Rotation at 90 degrees 74 Abduction Elbow/Forearm Range of Motion Elbow/Forearm Left Active Elbow Flexion (degrees) 137 Elbow Extension (degrees) 18 PT-OP-L Special Tests Start: 03/16/19 18:42 Freq: Status: Active Protocol: Document 08/09/19 08:54 [facility] (Rec: 08/09/19 13:46 [facility] [id number]) Special Tests Neural Special Tests- Upper Body Radial Nerve Tension Test Results neg L Median Nerve Tension Test Results positive L Ulnar Nerve Tension Test Results positive L Vascular Special Tests Costoclavicular Maneuver Test Results negq Patricio Test Test Results Pos PT-OP-M Strength Start: 03/16/19 18:42 Freq: Status: Active Protocol: Document 08/09/19 08:54 [facility] (Rec: 08/09/19 13:46 [facility] [id number]) Shoulder Strength Shoulder Manual Muscle Testing Right Flexion 5 Normal Extension 5 Normal Abduction (C5) 5 Normal External Rotation 4+ Good+ Internal Rotation 4+ Good+ Left Flexion 4- Good- Extension 4- Good- Abduction (C5) 4- Good- External Rotation 4 Good Internal Rotation 4- Good- Comments pain with flex, abd, ext Elbow/Forearm Strength Elbow and Forearm Manual Muscle Testing Right Flexion (C6) 5 Normal Extension (C7) 5 Normal Pronation 5 Normal Supination 5 Normal Left Flexion (C6) 4 Good Extension (C7) 4 Good Pronation 4 Good Supination 4 Good Reason Not Measured Pain Comments EFT:2/5, breaks at L shoulder blade Wrist Strength Wrist Manual Muscle Testing Right Reason Not Measured WFL Left Flexion (C7) 4 Good Extension (C6) 4 Good Ulnar Deviation 4 Good Radial Deviation 4 Good PT-OP-Q Treatments Start: 03/16/19 18:42 Freq: Status: Active Protocol: Document 08/16/19 14:46 [facility] (Rec: 08/16/19 14:55 [facility] [email or web address]) Therapeutic Exercises Supine Exercises Chest director data architecture on foam roller Supine Exercise Name 1/2 foam roll chest director data architecture Reps/Minutes x 5 min Comments with active forearm supination Sidelying Exercises roll & reach Side left Reps/Minutes 5 Manual Therapy Treatment Soft Tissue Mobilization scalenes Body Location L scalenes, SCM & UT Mobilization Type Sustained Pressure Intensity/Depth Moderate Body Position Supine pec Body Location pec L and ant shoulder Mobilization Type Myofascial Release,Rolling Body Position Supine biceps Body Location L bicep, brachioradialis Mobilization Type Cross-Friction,Myofascial Release,Rolling Intensity/Depth Superficial Body Position Hooklying Comments moderate along mm belly; superficail along distal border & circumfrential MFR on brachium, MWM elbow flex/ext and forearm pron/sup Joint Mobilizations ribs Comments 1. 1st rib caudal FM w/cover position 2. s/l 2nd rib caudal FM w/abd c/r Manual Traction Cervical Details manual cervical traction Body Position Supine Reps/Duration 3 minutes PT-OP-R Modalities Start: 03/16/19 18:42 Freq: Status: Active Protocol: Document 05/17/19 13:45 [facility] (Rec: 05/17/19 17:03 [facility] [id number]) Hot Pack/Cold Pack Treatment MHP L elbow Location L elbow Patient Position Sitting Treatment Duration (minutes) 15 Patient Tolerance Good PT-OP-T Assessment and Plan Start: 03/16/19 18:42 Freq: Status: Active Protocol: Document 08/16/19 14:46 [facility] (Rec: 08/16/19 14:55 [facility] [id number]) Physical Therapy Assessment Assessment Summary Assessment pt experiencing increase left elbow pain with lifting requirements for work related activity. We talked today on ways to get her boxes out of the car without straining. She is going to try and load it herself next week so she can have the boxes and table where she needs them. I encouraged postural stretches for home and Padmini is interested in purchasing a 1/2 foam roll. Physical Therapy Plan Frequency and Duration Frequency of Treatment 1-2x/Week Duration of Treatment 2 months Plan of Care Start Date 08/09/19 Plan of Care End Date 10/09/19 Therapeutic Interventions Therapeutic Interventions Aquatic Therapy,Home Exercise Program,Joint Mobilizations, Manual Therapy,Neuromuscular Re-education,Patient/Caregiver Education,Self-Care/Home Management,Soft Tissue Mobilization,Taping, Therapeutic Activities, Therapeutic Exercises Modalities Cold Pack/Ice Massage,Electric Stimulation,Hot Packs, Infrared Therapy,Iontophoresis ,Traction- Mechanical, Ultrasound Next Visit Focus/Plan Next Note Type Treatment Note Next Visit Plan continue progressing scapular stability, postural exercises, stretches for the neck and manual therapy techniques
--- NOTE | 2019-08-18 15:15 | PT.OTN ---
Current Diagnoses Lesion of ulnar nerve, unspecified upper limb (08/18/19) Medial epicondylitis, left elbow (08/18/19) Physical Therapy Treatment Note PT-OP-A Visit Information Start: 03/16/19 18:42 Freq: Status: Active Protocol: Document 08/18/19 14:50 [facility] (Rec: 08/18/19 15:15 [facility] [id number]) Out-Patient Physical Therapy Visit Information Visit Information Visit Type Treatment Note Visit Start Time 14:25 Visit Stop Time 15:10 Total Visit Minutes 45 Visit Number 15 Number of [employer]OD [employer]LE INST[employer]ATION HELPER Visits 0 PT-OP-B Current Condition Start: 03/16/19 18:42 Freq: Status: Active Protocol: Document 03/17/19 09:46 [facility] (Rec: 03/17/19 11:16 [facility] [id number]) Current Condition History of Current Condition Onset Date 2014 Current Complaints L post arm pain History of Current Condition Pt reports post brachium and and med forearm/post forearm & fingers, but does not rememeber which fingers but thinks 2-4. Pt reports it hadn 't made its way into her hand until 2019. Pt does not remember when the pain exactly started but it was sore every once in a while and eventually got worse. Pt neck pain does not typicaly relate to arm pain. 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 Pt has history of depression, anxiety and bipolar condition along with neck pain. Pt reports hisotry of reoccuring pain in all of her joints throguhout all of her body since 14. She has had to do PT on B knees, R shoulder coritzone shot, B hips give her trouble. Prior Treatments and Tests none Treatment Goals Patient/Caregiver Goals Dec pain, prevent progression of pain into hand, improve ability to lift PT-OP-C Subjective Start: 03/16/19 18:42 Freq: Status: Active Protocol: Document 08/18/19 14:50 [facility] (Rec: 08/18/19 15:15 [facility] [id number]) OP-PT Subjective Patient Comments Patient Comments Pt reprots compliance with exercises. Feels like shoulder mobs have been most helpful PT-OP-F Manual Assessment Start: 03/16/19 18:42 Freq: Status: Active Protocol: Document 03/17/19 09:46 [facility] (Rec: 03/17/19 11:16 [facility] [id number]) Manual Assessments Soft Tissue Assessment Soft Tissue Mobility Assessment pain w/palpation of triceps, biceps and wrist fled and extensors PT-OP-J Posture/Palpation/Skin Start: 03/16/19 18:42 Freq: Status: Active Protocol: Document 03/17/19 09:46 [facility] (Rec: 03/17/19 11:16 [facility] [id number]) Posture Evaluation [facility] Postural Classification System [facility] Postural Classifications Posterior/Anterior Vertebral Compression Test 0 Elbow Flexion Test 0 PT-OP-K Range of Motion Start: 03/16/19 18:42 Freq: Status: Active Protocol: Document 08/09/19 08:54 [facility] (Rec: 08/09/19 13:46 [facility] [id number]) Cervical Spine Range of Motion Cervical Spine Active Degrees Testing Position Sitting Flexion 47 Extension 56 Rotation Left 54 Rotation Right 69 Lateral Flexion Left 36 Lateral Flexion Right 33 Comments pain post neck on L side>R w/ ext, pain L UT with L rotation Shoulder Goniometric Range of Motion Shoulder Right Active Shoulder ROM WFL Yes Left Active Flexion 150 Extension 74 Abduction 166 External Rotation at 90 degrees 74 Abduction Elbow/Forearm Range of Motion Elbow/Forearm Left Active Elbow Flexion (degrees) 137 Elbow Extension (degrees) 18 PT-OP-L Special Tests Start: 03/16/19 18:42 Freq: Status: Active Protocol: Document 08/09/19 08:54 [facility] (Rec: 08/09/19 13:46 [facility] [id number]) Special Tests Neural Special Tests- Upper Body Radial Nerve Tension Test Results neg L Median Nerve Tension Test Results positive L Ulnar Nerve Tension Test Results positive L Vascular Special Tests Costoclavicular Maneuver Test Results negq Patricio Test Test Results Pos PT-OP-M Strength Start: 03/16/19 18:42 Freq: Status: Active Protocol: Document 08/09/19 08:54 [facility] (Rec: 08/09/19 13:46 [facility] [id number]) Shoulder Strength Shoulder Manual Muscle Testing Right Flexion 5 Normal Extension 5 Normal Abduction (C5) 5 Normal External Rotation 4+ Good+ Internal Rotation 4+ Good+ Left Flexion 4- Good- Extension 4- Good- Abduction (C5) 4- Good- External Rotation 4 Good Internal Rotation 4- Good- Comments pain with flex, abd, ext Elbow/Forearm Strength Elbow and Forearm Manual Muscle Testing Right Flexion (C6) 5 Normal Extension (C7) 5 Normal Pronation 5 Normal Supination 5 Normal Left Flexion (C6) 4 Good Extension (C7) 4 Good Pronation 4 Good Supination 4 Good Reason Not Measured Pain Comments EFT:2/5, breaks at L shoulder blade Wrist Strength Wrist Manual Muscle Testing Right Reason Not Measured WFL Left Flexion (C7) 4 Good Extension (C6) 4 Good Ulnar Deviation 4 Good Radial Deviation 4 Good PT-OP-Q Treatments Start: 03/16/19 18:42 Freq: Status: Active Protocol: Document 08/18/19 14:50 [facility] (Rec: 08/18/19 15:15 [facility] [id number]) Therapeutic Exercises Supine Exercises axial elongation Reps/Minutes 5secx4 Chest applied psychology teacher on foam roller Supine Exercise Name full foam roll : Habd, flex, abd & perdenducular thoracic stretch over Manual Therapy Treatment Soft Tissue Mobilization median n Body Location along pathway with median n gliding SOR Intensity/Depth Moderate Body Position Supine Comments w/chin tuck Joint Mobilizations GH Joint L Direction post glide & translation, inf glide & translation, lat glide FM PT-OP-R Modalities Start: 03/16/19 18:42 Freq: Status: Active Protocol: Document 05/17/19 13:45 [facility] (Rec: 05/17/19 17:03 [facility] [id number]) Hot Pack/Cold Pack Treatment MHP L elbow Location L elbow Patient Position Sitting Treatment Duration (minutes) 15 Patient Tolerance Good PT-OP-T Assessment and Plan Start: 03/16/19 18:42 Freq: Status: Active Protocol: Document 08/18/19 14:50 [facility] (Rec: 08/18/19 15:15 [facility] [id number]) Physical Therapy Assessment Goals Quickdash Impairment 34.1 Custodial Goal (LTG) Pt will have improvement of quickdash to less than 10 to show greater ease with daily activities. 05/30-n/t 08/08-still limited 05/17/2019: patient scored 31.8 after filling out today. Slight improvement but would still like to acheive a score of 10. LTG Duration 10/09/19 strength Short Term Goal (STG) Pt will be indep w/HEP. 05/17/2019: Met STG Duration progressing since PT been closed Custodial Goal (LTG) Pt will have 5/5 elbow strength & shoulder strength B and 4/5 EFT along with equal river pilot strength B to allow pt to do typical daily activities without pain. 05/17/2019: Continue progressing strength. river pilot strength has improved 05/30-significant improvment LTG Duration 10/09/19 lifting Short Term Goal (STG) Pt will have full AROM ext & supination of L elbow. 05/17/2019: Patient has full supination but still lacks 5 degrees of full extension of L elbow. STG Duration 09/08/19 restarted to regression with no PT Custodial Goal (LTG) Pt will be able to lift as needed without inc pain. 05/17/2019: Patient still reports some pain with day to day activities. 05/30:Continue progressing towards goal LTG Duration 10/09/19 Assessment Summary Assessment Pt improved median n glide from aboutr 20 deg to about 100 deg shoulder abd in n glide after manual treamtnet. Improved ext of elbow after treatment also. Pt noted some soreness in scalenes and pec after treatment and encouraged to use ice or heat at home. Physical Therapy Plan Frequency and Duration Frequency of Treatment 1-2x/Week Duration of Treatment 2 months Plan of Care Start Date 08/09/19 Plan of Care End Date 10/09/19 Next Visit Focus/Plan Next Note Type Treatment Note Next Visit Plan continue progressing scapular stability, postural exercises, stretches for the neck and manual therapy techniques
--- NOTE | 2019-08-25 19:10 | PT.OTN ---
Current Diagnoses Lesion of ulnar nerve, unspecified upper limb (08/25/19) Medial epicondylitis, left elbow (08/25/19) Physical Therapy Treatment Note PT-OP-A Visit Information Start: 03/16/19 18:42 Freq: Status: Active Protocol: Document 08/25/19 19:05 [facility] (Rec: 08/25/19 19:10 [facility] [id number]) Out-Patient Physical Therapy Visit Information Visit Information Visit Type Treatment Note Visit Start Time 15:17 Visit Stop Time 16:15 Total Visit Minutes 58 Visit Number 16 Number of BENEFITS ANALYST Visits 0 PT-OP-B Current Condition Start: 03/16/19 18:42 Freq: Status: Active Protocol: Document 03/17/19 09:46 [facility] (Rec: 03/17/19 11:16 [facility] [id number]) Current Condition History of Current Condition Onset Date 2014 Current Complaints L post arm pain History of Current Condition Pt reports post brachium and and med forearm/post forearm & fingers, but does not rememeber which fingers but thinks 2-4. Pt reports it hadn 't made its way into her hand until 2019. Pt does not remember when the pain exactly started but it was sore every once in a while and eventually got worse. Pt neck pain does not typicaly relate to arm pain. 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 Pt has history of depression, anxiety and bipolar condition along with neck pain. Pt reports hisotry of reoccuring pain in all of her joints throguhout all of her body since 14. She has had to do PT on B knees, R shoulder coritzone shot, B hips give her trouble. Prior Treatments and Tests none Treatment Goals Patient/Caregiver Goals Dec pain, prevent progression of pain into hand, improve ability to lift PT-OP-C Subjective Start: 03/16/19 18:42 Freq: Status: Active Protocol: Document 08/25/19 19:05 [facility] (Rec: 08/25/19 19:10 [facility] [id number]) OP-PT Subjective Patient Comments Patient Comments Pt reports some soreness after last session. PT-OP-F Manual Assessment Start: 03/16/19 18:42 Freq: Status: Active Protocol: Document 03/17/19 09:46 [facility] (Rec: 03/17/19 11:16 [facility] [id number]) Manual Assessments Soft Tissue Assessment Soft Tissue Mobility Assessment pain w/palpation of triceps, biceps and wrist fled and extensors PT-OP-J Posture/Palpation/Skin Start: 03/16/19 18:42 Freq: Status: Active Protocol: Document 03/17/19 09:46 [facility] (Rec: 03/17/19 11:16 [facility] [id number]) Posture Evaluation [facility] Postural Classification System [facility] Postural Classifications Posterior/Anterior Vertebral Compression Test 0 Elbow Flexion Test 0 PT-OP-K Range of Motion Start: 03/16/19 18:42 Freq: Status: Active Protocol: Document 08/09/19 08:54 [facility] (Rec: 08/09/19 13:46 [facility] [id number]) Cervical Spine Range of Motion Cervical Spine Active Degrees Testing Position Sitting Flexion 47 Extension 56 Rotation Left 54 Rotation Right 69 Lateral Flexion Left 36 Lateral Flexion Right 33 Comments pain post neck on L side>R w/ ext, pain L UT with L rotation Shoulder Goniometric Range of Motion Shoulder Right Active Shoulder ROM WFL Yes Left Active Flexion 150 Extension 74 Abduction 166 External Rotation at 90 degrees 74 Abduction Elbow/Forearm Range of Motion Elbow/Forearm Left Active Elbow Flexion (degrees) 137 Elbow Extension (degrees) 18 PT-OP-L Special Tests Start: 03/16/19 18:42 Freq: Status: Active Protocol: Document 08/09/19 08:54 [facility] (Rec: 08/09/19 13:46 [facility] [id number]) Special Tests Neural Special Tests- Upper Body Radial Nerve Tension Test Results neg L Median Nerve Tension Test Results positive L Ulnar Nerve Tension Test Results positive L Vascular Special Tests Costoclavicular Maneuver Test Results negq Patricio Test Test Results Pos PT-OP-M Strength Start: 03/16/19 18:42 Freq: Status: Active Protocol: Document 08/09/19 08:54 [facility] (Rec: 08/09/19 13:46 [facility] [id number]) Shoulder Strength Shoulder Manual Muscle Testing Right Flexion 5 Normal Extension 5 Normal Abduction (C5) 5 Normal External Rotation 4+ Good+ Internal Rotation 4+ Good+ Left Flexion 4- Good- Extension 4- Good- Abduction (C5) 4- Good- External Rotation 4 Good Internal Rotation 4- Good- Comments pain with flex, abd, ext Elbow/Forearm Strength Elbow and Forearm Manual Muscle Testing Right Flexion (C6) 5 Normal Extension (C7) 5 Normal Pronation 5 Normal Supination 5 Normal Left Flexion (C6) 4 Good Extension (C7) 4 Good Pronation 4 Good Supination 4 Good Reason Not Measured Pain Comments EFT:2/, breaks at L shoulder blade Wrist Strength Wrist Manual Muscle Testing Right Reason Not Measured WFL Left Flexion (C7) 4 Good Extension (C6) 4 Good Ulnar Deviation 4 Good Radial Deviation 4 Good PT-OP-Q Treatments Start: 03/16/19 18:42 Freq: Status: Active Protocol: Document 08/25/19 19:05 [facility] (Rec: 08/25/19 19:10 [facility] [id number]) Therapeutic Exercises Standing Exercises wall posture Standing Exercise Name w// HAbd Side bilateral Reps/Minutes 10 Therapeutic Activity Therapeutic Activity lifting Name edu on lifting technique with shoulder stability Comments improved EFT from 03/14 to 05/12 with improved posture posture Name edu in mirror and without to show improved posture Manual Therapy Treatment Soft Tissue Mobilization pec Body Location pec L and ant shoulder Mobilization Type Myofascial Release,Rolling Body Position Supine Joint Mobilizations AC Direction dorsal FM T2-T6 Joint T2-T9 Direction UPA L & PA FM Neuro Re-Education Treatment Other Activities PNF Details ant elevation & post depression Comments L scap rhythmic initation PT-OP-R Modalities Start: 03/16/19 18:42 Freq: Status: Active Protocol: Document 08/25/19 19:05 [facility] (Rec: 08/25/19 19:10 [facility] [id number]) Hot Pack/Cold Pack Treatment MHP L elbow Location L elbow & shoulder Patient Position Hooklying Treatment Duration (minutes) 15 PT-OP-T Assessment and Plan Start: 03/16/19 18:42 Freq: Status: Active Protocol: Document 08/25/19 19:05 [facility] (Rec: 08/25/19 19:10 [facility] [id number]) Physical Therapy Assessment Goals Quickdash Impairment 34.1 Fraud Investigator Goal (LTG) Pt will have improvement of quickdash to less than 10 to show greater ease with daily activities. 05/30-n/t 08/08-still limited 05/17/2019: patient scored 31.8 after filling out today. Slight improvement but would still like to acheive a score of 10. LTG Duration 10/09/19 strength Short Term Goal (STG) Pt will be indep w/HEP. 05/17/2019: Met STG Duration progressing since PT been closed Fraud Investigator Goal (LTG) Pt will have 5/5 elbow strength & shoulder strength B and 4/5 EFT along with equal abrasive coating machine operator strength B to allow pt to do typical daily activities without pain. 05/17/2019: Continue progressing strength. abrasive coating machine operator strength has improved 05/30-significant improvment LTG Duration 10/09/19 lifting Short Term Goal (STG) Pt will have full AROM ext & supination of L elbow. 05/17/2019: Patient has full supination but still lacks 5 degrees of full extension of L elbow. STG Duration 09/08/19 restarted to regression with no PT Shelter Goal (LTG) Pt will be able to lift as needed without inc pain. 05/17/2019: Patient still reports some pain with day to day activities. 05/30:Continue progressing towards goal LTG Duration 10/09/19 Assessment Summary Assessment pt improved with posture with cueing and improved with ability to achieve better posture with manual treatment. She improved EFT with edu on posture & positioning. Physical Therapy Plan Frequency and Duration Frequency of Treatment 1-2x/Week Duration of Treatment 2 months Plan of Care Start Date 08/09/19 Plan of Care End Date 10/09/19 Next Visit Focus/Plan Next Note Type Treatment Note Next Visit Plan continue progressing scapular stability, postural exercises, stretches for the neck and manual therapy techniques, PNF , roll & reach
--- NOTE | 2019-09-01 11:02 | PT.OTN ---
Current Diagnoses Lesion of ulnar nerve, unspecified upper limb (09/01/19) Medial epicondylitis, left elbow (09/01/19) Physical Therapy Treatment Note PT-OP-A Visit Information Start: 03/16/19 18:42 Freq: Status: Active Protocol: Document 09/01/19 10:55 [facility] (Rec: 09/01/19 11:01 [facility] [id number]) Out-Patient Physical Therapy Visit Information Visit Information Visit Type Treatment Note Visit Start Time 09:51 Visit Stop Time 10:31 Total Visit Minutes 40 Visit Number 17 Number of BOILERMAKER APPRENTICE Visits 0 PT-OP-B Current Condition Start: 03/16/19 18:42 Freq: Status: Active Protocol: Document 03/17/19 09:46 [facility] (Rec: 03/17/19 11:16 [facility] [id number]) Current Condition History of Current Condition Onset Date 2014 Current Complaints L post arm pain History of Current Condition Pt reports post brachium and and med forearm/post forearm & fingers, but does not rememeber which fingers but thinks 2-4. Pt reports it hadn 't made its way into her hand until 2019. Pt does not remember when the pain exactly started but it was sore every once in a while and eventually got worse. Pt neck pain does not typicaly relate to arm pain. 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 Pt has history of depression, anxiety and bipolar condition along with neck pain. Pt reports hisotry of reoccuring pain in all of her joints throguhout all of her body since 14. She has had to do PT on B knees, R shoulder coritzone shot, B hips give her trouble. Prior Treatments and Tests none Treatment Goals Patient/Caregiver Goals Dec pain, prevent progression of pain into hand, improve ability to lift PT-OP-C Subjective Start: 03/16/19 18:42 Freq: Status: Active Protocol: Document 09/01/19 10:55 [facility] (Rec: 09/01/19 11:01 [facility] [id number]) OP-PT Subjective Patient Comments Patient Comments Pt reports she feels like working on posture when lifting definitatley helped at work PT-OP-F Manual Assessment Start: 03/16/19 18:42 Freq: Status: Active Protocol: Document 03/17/19 09:46 [facility] (Rec: 03/17/19 11:16 [facility] [id number]) Manual Assessments Soft Tissue Assessment Soft Tissue Mobility Assessment pain w/palpation of triceps, biceps and wrist fled and extensors PT-OP-J Posture/Palpation/Skin Start: 03/16/19 18:42 Freq: Status: Active Protocol: Document 03/17/19 09:46 [facility] (Rec: 03/17/19 11:16 [facility] [id number]) Posture Evaluation [facility] Postural Classification System [facility] Postural Classifications Posterior/Anterior Vertebral Compression Test 0 Elbow Flexion Test 0 PT-OP-K Range of Motion Start: 03/16/19 18:42 Freq: Status: Active Protocol: Document 08/09/19 08:54 [facility] (Rec: 08/09/19 13:46 [facility] [id number]) Cervical Spine Range of Motion Cervical Spine Active Degrees Testing Position Sitting Flexion 47 Extension 56 Rotation Left 54 Rotation Right 69 Lateral Flexion Left 36 Lateral Flexion Right 33 Comments pain post neck on L side>R w/ ext, pain L UT with L rotation Shoulder Goniometric Range of Motion Shoulder Right Active Shoulder ROM WFL Yes Left Active Flexion 150 Extension 74 Abduction 166 External Rotation at 90 degrees 74 Abduction Elbow/Forearm Range of Motion Elbow/Forearm Left Active Elbow Flexion (degrees) 137 Elbow Extension (degrees) 18 PT-OP-L Special Tests Start: 03/16/19 18:42 Freq: Status: Active Protocol: Document 08/09/19 08:54 [facility] (Rec: 08/09/19 13:46 [facility] [id number]) Special Tests Neural Special Tests- Upper Body Radial Nerve Tension Test Results neg L Median Nerve Tension Test Results positive L Ulnar Nerve Tension Test Results positive L Vascular Special Tests Costoclavicular Maneuver Test Results negq Patricio Test Test Results Pos PT-OP-M Strength Start: 03/16/19 18:42 Freq: Status: Active Protocol: Document 08/09/19 08:54 [facility] (Rec: 08/09/19 13:46 [facility] [id number]) Shoulder Strength Shoulder Manual Muscle Testing Right Flexion 5 Normal Extension 5 Normal Abduction (C5) 5 Normal External Rotation 4+ Good+ Internal Rotation 4+ Good+ Left Flexion 4- Good- Extension 4- Good- Abduction (C5) 4- Good- External Rotation 4 Good Internal Rotation 4- Good- Comments pain with flex, abd, ext Elbow/Forearm Strength Elbow and Forearm Manual Muscle Testing Right Flexion (C6) 5 Normal Extension (C7) 5 Normal Pronation 5 Normal Supination 5 Normal Left Flexion (C6) 4 Good Extension (C7) 4 Good Pronation 4 Good Supination 4 Good Reason Not Measured Pain Comments EFT:2/5, breaks at L shoulder blade Wrist Strength Wrist Manual Muscle Testing Right Reason Not Measured WFL Left Flexion (C7) 4 Good Extension (C6) 4 Good Ulnar Deviation 4 Good Radial Deviation 4 Good PT-OP-Q Treatments Start: 03/16/19 18:42 Freq: Status: Active Protocol: Document 09/01/19 10:55 [facility] (Rec: 09/01/19 11:01 [facility] [id number]) Therapeutic Exercises Supine Exercises shoulder set Supine Exercise Name post translation of humerus Side left Reps/Minutes 10 sec x4 axial elongation Supine Exercise Name w/core intiation w/B hip flex isometric Side bilateral Reps/Minutes 30 sec x2 Standing Exercises ER Side bilateral Equipment Used L1 Reps/Minutes 10x3 Comments focus on scap movement Therapeutic Activity Therapeutic Activity posture Name edu in mirror and without to show improved posture Manual Therapy Treatment Soft Tissue Mobilization scalenes Body Location scalenes & UT Mobilization Type Rolling Intensity/Depth Moderate pec Body Location pec L and ant shoulder Mobilization Type Myofascial Release,Rolling Body Position Supine biceps Body Location L w/elbow flex/ext Mobilization Type Strumming,Sustained Pressure Joint Mobilizations scap thoracic Direction med & inf GH Joint L Direction post & inf glides humeroulnar Joint distraction FM radioulnar Joint AP FM PT-OP-R Modalities Start: 03/16/19 18:42 Freq: Status: Active Protocol: Document 08/25/19 19:05 [facility] (Rec: 08/25/19 19:10 [facility] [id number]) Hot Pack/Cold Pack Treatment MHP L elbow Location L elbow & shoulder Patient Position Hooklying Treatment Duration (minutes) 15 PT-OP-T Assessment and Plan Start: 03/16/19 18:42 Freq: Status: Active Protocol: Document 09/01/19 10:55 [facility] (Rec: 09/01/19 11:01 [facility] [id number]) Physical Therapy Assessment Goals Quickdash Impairment 34.1 Jail Goal (LTG) Pt will have improvement of quickdash to less than 10 to show greater ease with daily activities. 05/30-n/t 08/08-still limited 05/17/2019: patient scored 31.8 after filling out today. Slight improvement but would still like to acheive a score of 10. LTG Duration 10/09/19 strength Short Term Goal (STG) Pt will be indep w/HEP. 05/17/2019: Met STG Duration progressing since PT been closed Algology Teacher Goal (LTG) Pt will have 5/5 elbow strength & shoulder strength B and 4/5 EFT along with equal business mail entry clerk strength B to allow pt to do typical daily activities without pain. 05/17/2019: Continue progressing strength. business mail entry clerk strength has improved 05/30-significant improvment LTG Duration 10/09/19 lifting Short Term Goal (STG) Pt will have full AROM ext & supination of L elbow. 05/17/2019: Patient has full supination but still lacks 5 degrees of full extension of L elbow. STG Duration 09/08/19 restarted to regression with no PT Jail Goal (LTG) Pt will be able to lift as needed without inc pain. 05/17/2019: Patient still reports some pain with day to day activities. 05/30:Continue progressing towards goal LTG Duration 10/09/19 Assessment Summary Assessment Pt improved ability to get scap into retraction & depression after manual treatment. She improved ability to extend elbow by about 10-15 deg after manual treatment with imrpoved end feel. Physical Therapy Plan Frequency and Duration Frequency of Treatment 1-2x/Week Duration of Treatment 2 months Plan of Care Start Date 08/09/19 Plan of Care End Date 10/09/19 Next Visit Focus/Plan Next Note Type Treatment Note Next Visit Plan continue progressing scapular stability, postural exercises, stretches for the neck and manual therapy techniques, PNF , roll & reach
--- NOTE | 2019-09-08 14:33 | PT.OTN ---
Current Diagnoses Lesion of ulnar nerve, unspecified upper limb (09/08/19) Medial epicondylitis, left elbow (09/08/19) Physical Therapy Treatment Note PT-OP-A Visit Information Start: 03/16/19 18:42 Freq: Status: Active Protocol: Document 09/08/19 14:21 [facility] (Rec: 09/08/19 14:33 [facility] [id number]) Out-Patient Physical Therapy Visit Information Visit Information Visit Type Treatment Note Visit Start Time 13:49 Visit Number 18 Number of DOCUMENT CONTROL CLERK Visits 0 PT-OP-B Current Condition Start: 03/16/19 18:42 Freq: Status: Active Protocol: Document 03/17/19 09:46 [facility] (Rec: 03/17/19 11:16 [facility] [id number]) Current Condition History of Current Condition Onset Date 2014 Current Complaints L post arm pain History of Current Condition Pt reports post brachium and and med forearm/post forearm & fingers, but does not rememeber which fingers but thinks 2-4. Pt reports it hadn 't made its way into her hand until 2018. Pt does not remember when the pain exactly started but it was sore every once in a while and eventually got worse. Pt neck pain does not typicaly relate to arm pain. 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 Pt has history of depression, anxiety and bipolar condition along with neck pain. Pt reports hisotry of reoccuring pain in all of her joints throguhout all of her body since 14. She has had to do PT on B knees, R shoulder coritzone shot, B hips give her trouble. Prior Treatments and Tests none Treatment Goals Patient/Caregiver Goals Dec pain, prevent progression of pain into hand, improve ability to lift PT-OP-C Subjective Start: 03/16/19 18:42 Freq: Status: Active Protocol: Document 09/08/19 14:21 [facility] (Rec: 09/08/19 14:33 [facility] [id number]) OP-PT Subjective Patient Comments Patient Comments Reports this weekend she had help w/lifting. NOTes she feels like ROm stayed more since last time PT-OP-F Manual Assessment Start: 03/16/19 18:42 Freq: Status: Active Protocol: Document 03/17/19 09:46 [facility] (Rec: 03/17/19 11:16 [facility] [id number]) Manual Assessments Soft Tissue Assessment Soft Tissue Mobility Assessment pain w/palpation of triceps, biceps and wrist fled and extensors PT-OP-J Posture/Palpation/Skin Start: 03/16/19 18:42 Freq: Status: Active Protocol: Document 03/17/19 09:46 [facility] (Rec: 03/17/19 11:16 [facility] [id number]) Posture Evaluation [facility] Postural Classification System [facility] Postural Classifications Posterior/Anterior Vertebral Compression Test 0 Elbow Flexion Test 0 PT-OP-K Range of Motion Start: 03/16/19 18:42 Freq: Status: Active Protocol: Document 08/09/19 08:54 [facility] (Rec: 08/09/19 13:46 [facility] [id number]) Cervical Spine Range of Motion Cervical Spine Active Degrees Testing Position Sitting Flexion 47 Extension 56 Rotation Left 54 Rotation Right 69 Lateral Flexion Left 36 Lateral Flexion Right 33 Comments pain post neck on L side>R w/ ext, pain L UT with L rotation Shoulder Goniometric Range of Motion Shoulder Right Active Shoulder ROM WFL Yes Left Active Flexion 150 Extension 74 Abduction 166 External Rotation at 90 degrees 74 Abduction Elbow/Forearm Range of Motion Elbow/Forearm Left Active Elbow Flexion (degrees) 137 Elbow Extension (degrees) 18 PT-OP-L Special Tests Start: 03/16/19 18:42 Freq: Status: Active Protocol: Document 08/09/19 08:54 [facility] (Rec: 08/09/19 13:46 [facility] [id number]) Special Tests Neural Special Tests- Upper Body Radial Nerve Tension Test Results neg L Median Nerve Tension Test Results positive L Ulnar Nerve Tension Test Results positive L Vascular Special Tests Costoclavicular Maneuver Test Results negq Patricio Test Test Results Pos PT-OP-M Strength Start: 03/16/19 18:42 Freq: Status: Active Protocol: Document 08/09/19 08:54 [facility] (Rec: 08/09/19 13:46 [facility] [id number]) Shoulder Strength Shoulder Manual Muscle Testing Right Flexion 5 Normal Extension 5 Normal Abduction (C5) 5 Normal External Rotation 4+ Good+ Internal Rotation 4+ Good+ Left Flexion 4- Good- Extension 4- Good- Abduction (C5) 4- Good- External Rotation 4 Good Internal Rotation 4- Good- Comments pain with flex, abd, ext Elbow/Forearm Strength Elbow and Forearm Manual Muscle Testing Right Flexion (C6) 5 Normal Extension (C7) 5 Normal Pronation 5 Normal Supination 5 Normal Left Flexion (C6) 4 Good Extension (C7) 4 Good Pronation 4 Good Supination 4 Good Reason Not Measured Pain Comments EFT:2/5, breaks at L shoulder blade Wrist Strength Wrist Manual Muscle Testing Right Reason Not Measured WFL Left Flexion (C7) 4 Good Extension (C6) 4 Good Ulnar Deviation 4 Good Radial Deviation 4 Good PT-OP-Q Treatments Start: 03/16/19 18:42 Freq: Status: Active Protocol: Document 09/08/19 14:21 [facility] (Rec: 09/08/19 14:33 [facility] [id number]) Therapeutic Exercises Supine Exercises Chest customer support specialist on foam roller Supine Exercise Name full foam roll : Habd, flex, abd & perdenducular thoracic stretch over Side bilateral Sidelying Exercises roll & reach Side left Reps/Minutes 10 Sitting Exercises stretch Sitting Exercise Name wrist felxor and ext stretches Side left Reps/Minutes 30 sec ea Standing Exercises stretch Standing Exercise Name doorway biceps/pecs Reps/Minutes 30 sec Manual Therapy Treatment Soft Tissue Mobilization triceps Body Location L proximal focus Mobilization Type Rolling,Strumming Intensity/Depth Moderate Body Position Supine forearm Body Location wrist extensor Mobilization Type Rolling biceps Body Location L w/elbow flex/ext Mobilization Type Strumming,Sustained Pressure Joint Mobilizations humeroulnar Joint distraction FM radioulnar Joint AP FM PT-OP-R Modalities Start: 03/16/19 18:42 Freq: Status: Active Protocol: Document 09/08/19 14:21 [facility] (Rec: 09/08/19 14:33 [facility] [id number]) Hot Pack/Cold Pack Treatment Cold Pack Location L elbow Patient Position Sitting Treatment Duration (minutes) 10 PT-OP-T Assessment and Plan Start: 03/16/19 18:42 Freq: Status: Active Protocol: Document 09/08/19 14:21 [facility] (Rec: 09/08/19 14:33 [facility] [id number]) Physical Therapy Assessment Goals Quickdash Impairment 34.1 Cloth Desizing Range Operator Chief Goal (LTG) Pt will have improvement of quickdash to less than 10 to show greater ease with daily activities. 05/30-n/t 08/08-still limited 05/17/2019: patient scored 31.8 after filling out today. Slight improvement but would still like to acheive a score of 10. LTG Duration 10/09/19 strength Short Term Goal (STG) Pt will be indep w/HEP. 05/17/2019: Met STG Duration progressing since PT been closed Cloth Desizing Range Operator Chief Goal (LTG) Pt will have 5/5 elbow strength & shoulder strength B and 4/5 EFT along with equal furnace puncher strength B to allow pt to do typical daily activities without pain. 05/17/2019: Continue progressing strength. furnace puncher strength has improved 05/30-significant improvment LTG Duration 10/09/19 lifting Short Term Goal (STG) Pt will have full AROM ext & supination of L elbow. 05/17/2019: Patient has full supination but still lacks 5 degrees of full extension of L elbow. STG Duration 09/08/19 restarted to regression with no PT Snf Goal (LTG) Pt will be able to lift as needed without inc pain. 05/17/2019: Patient still reports some pain with day to day activities. 05/30:Continue progressing towards goal LTG Duration 10/09/19 Assessment Summary Assessment Pt no longer has any ulnar n or median n tension but radial n tension present with slight improvement after manual treatment. Almost full ext gained after manual treatment today. Pt encouraged to follow up with re: other treatmetn options. Physical Therapy Plan Frequency and Duration Frequency of Treatment 1-2x/Week Duration of Treatment 2 months Plan of Care Start Date 08/09/19 Plan of Care End Date 10/09/19
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
--- NOTE | 2020-01-06 11:53 | PT.OPDS ---
Current Diagnoses Lesion of ulnar nerve, unspecified upper limb (09/08/19) Medial epicondylitis, left elbow (09/08/19) Visit Care Team Role Provider Type Nancy Goldstein MD Attending Provider Non-Staff Primary Care Provider Specialty: [facility] Address: [address] [place] [address], [id number] Fax: Email: Visit Number Visit Number 18 Discharge Summary PT-OP-T Assessment and Plan Start: 03/16/19 18:42 Freq: Status: Active Protocol: Document 01/06/20 11:52 [facility] (Rec: 01/06/20 11:53 [facility] [id number]) Physical Therapy Assessment Assessment Summary Assessment Pt had plateaued with PT so was encouraged to follow up with MD re: imaging /further treatment. Case was kept open for potential return to PT but pt has not returned to to PT and was last seen 3 months ago . Pt is dc at this time d/t no longer attending PT. Physical Therapy Plan Discharge Physical Therapy Discharge Reasons No Longer Attending PT
== END 2020-01-21 14:06 ==
LOC: PHYS 13:45
PROVIDERS: PCP Family Medicine; Visit Provider Family Medicine
DX: G56.20 Lesion of ulnar nerve, unspecified upper limb (principal); M77.02 Medial epicondylitis, left elbow
CPT/HCPCS: 97010; 97110; 97140; 97162; 97530

== ENCOUNTER 2019-09-20 18:15 | Emergency (ER) | payer OTHER, SELFPAY ==
[2019-09-20 18:25] VITALS: BP 103/60; PULSE 88; RESP 18; TEMP 37.2; O2SAT 100; BMI 21.6
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
[2019-09-20] MEDS: ONDANSETRON 4 MG ODT SL (18:56)
[2019-09-20 19:48] VITALS: BP 97/63; PULSE 75; RESP 18; O2SAT 98
== END 2019-09-20 19:50 | disposition home or self-care (01) ==
PROVIDERS: Emergency Provider Emergency Medicine; PCP Family Medicine
DX: S06.0X0A Concussion without loss of consciousness, initial encounter (principal); R11.2 Nausea with vomiting, unspecified; V89.2XXA Person injured in unspecified motor-vehicle accident, traffic, initial encounter; Y99.0 Civilian activity done for income or pay
CPT/HCPCS: 70450; 99283; 99284

== ENCOUNTER → 2021-05-11 15:12 | Outpatient (CLI) | payer OTHER, SELFPAY ==
--- NOTE | 2021-05-11 15:14 | DI.RAD.S_ITS ---
PROCEDURE: XR FOOT RT MIN 3V INDICATIONS: right foot pain TECHNIQUE: 3 views of the foot were acquired. COMPARISON: [facility], , FOOT 3V RIGHT, 08/30/2014, 16:21. FINDINGS: Bones: No fractures or dislocations. No suspicious bony lesions. Soft tissues: No tibiotalar joint effusion. Achilles tendon appears normal. IMPRESSION: No acute osseous abnormalities. Dictated by: Laurita Jerry M.D. on 05/11/2021 at 17:41 Approved by: Laurita Jerry M.D. on 05/11/2021 at 17:43
== END ==
PROVIDERS: PCP Family Medicine; Referring Provider Nurse Practitioner Family; Visit Provider Nurse Practitioner Family
DX: M79.671 Pain in right foot (principal)
CPT/HCPCS: 73630

== ENCOUNTER → 2023-03-04 11:36 | Outpatient (CLI) | payer OTHER, MEDICAID, SELFPAY ==
[2023-03-04 13:05] LABS: Influenza A - CEPHEID Flu A NEGATIVE (NEGATIVE); Influenza B - CEPHEID Flu B NEGATIVE (NEGATIVE); Respiratory Syncytial Virus Negative (Negative)
[2023-03-04 13:08] LABS: COVID-19 CEPHEID 4-PLEX PCR Negative (Negative)
== END ==
PROVIDERS: PCP Family Medicine; Visit Provider Physician Assistant
DX: R50.9 Fever, unspecified (principal)
CPT/HCPCS: 0241U